=== PATIENT | female | born 1935 | race Caucasian/White ===

== ENCOUNTER 2019-01-27 20:13 | Inpatient (IN) | payer MEDICARE ==
[~2019-01-27 20:13] MED LIST: ISOVUE-370 76%-LOCM 1 ML ONE
[2019-01-27] MEDS ORDERED: Ondansetron PF 4 MG/2 ML Vial ONE (20:18)
[2019-01-27] MEDS ORDERED: Naloxone HCl 2 mg/2 ml Syringe ONE (20:18)
[2019-01-27] MEDS ORDERED: hydrALAZINE 20 MG/ML VIAL ONE ×2 (20:24→22:25)
[2019-01-27 20:39] LABS: #Eosinphils 0.1 thou/uL (0.0-0.7); #Lymphocytes 1.1 thou/uL (1.20-3.40); #Neutrophils 11.2 thou/uL (1.40-6.50); %Basophils 0.1 % (0.0-1.0); %Eosinophils 0.4 % (0.0-10.0); %Lymphocytes 8.2 % (21.0-51.0); %Monocytes 7.5 % (0.0-10.0); %Neutrophils 83.9 % (42.0-75.0); Hemoglobin 12.4 g/dL (12.0-16.0); Mean Corpuscular HGB CONC 31.9 g/dL (32.0-36.0); Mean Corpuscular Hemoglobin 29.2 pg (27.0-31.0); Mean Corpuscular Volume 91.7 fL (78.0-98.0); Mean Platelet Volume 8.3 fL (7.4-10.4); Platelet Count 167 thou/uL (130-400); RBC Distribution Width 13.7 % (11.5-14.5); Red Blood Cell (RBC) Count 4.23 mill/uL (4.20-5.40); White Blood Cell (WBC) Count 13.3 thou/uL (4.8-10.8)
--- NOTE | 2019-01-27 20:45 | CT ---
CT Brain WO Con History: [Trauma fall] Comparison: None Findings: There is a moderate right convexity subdural hematoma with along with a small subarachnoid component. There is intraventricular hemorrhage within both atria of the lateral ventricles. Some small volume right sylvian fissure subarachnoid hemorrhage. There is a an intraparenchymal hemorrhage and contusion of the inferior left cerebellum with adjacent calvarial fracture of the left occipital bone. Small left parietal intraparenchymal hemorrhage and small adjacent subdural hematoma as well as left frontal subarachnoid hemorrhage. No significant mass effect. The greatest dimension of the right subdural hematoma is approximately 5 mm. Impression: 1. Multifocal right convexity subdural hematoma and subarachnoid hemorrhage. No significant mass effe ct. Greatest transverse dimension of the right convexity subdural hematoma is 5 mm. 2. Inferior left cerebellar intraparenchymal hemorrhage and contusion. 3. Multifocal left frontal small volume subarachnoid hemorrhage as well as small left parietal subdur al hematoma and intraparenchymal hematoma. 4. Sagittally oriented fracture of the left occipital bone which appears to extend to the foramen mag num. 5. Small volume intraventricular hemorrhage of both lateral ventricles. No significant hydrocephalus.
[2019-01-27 20:55] LABS: ALT (SGPT) 24 U/L (8-55); AST (SGOT) 28 U/L (5-34); Albumin 4.2 g/dL (3.4-4.8); Alkaline Phosphatase 78 U/L (40-150); Anion Gap 17 mmol/L (10-20); BUN (Urea Nitrogen) 10 mg/dL (9.8-20.1); Bilirubin, Total 0.6 mg/dL (0.2-1.2); Calc. Creatinine Clearance 0 mL/min (70-130); Calcium 9.6 mg/dL (7.8-10.44); Carbon Dioxide 24 mmol/L (23-31); Chloride 104 mmol/L (98-107); Estimated GFR-MDRD 60; Globulin 2.9 g/dL (2.4-3.5); Glucose 274 mg/dL (83-110); Potassium 3.4 mmol/L (3.5-5.1); Protein, Total 7.1 g/dL (6.0-8.3); Sodium 142 mmol/L (136-145)
[2019-01-27 20:56] LABS: Acetaminophen Less than 6.0 mcg/mL (10.0-30.0); Alcohol Less than 10 mg/dL (Less than 10); CK (CPK) 40 U/L (29-168); Salicylate Less than 8.0 mg/dL (15.0-30.0)
--- NOTE | 2019-01-27 20:56 | CT ---
CT Cervical Spine WO Con History: [Trauma. Fall.] Comparison: None. Findings: There is a sagittally oriented fracture left occipital bone extending into the left hypoglo ssal canal. The odontoid process evaluation is limited due to motion although appears to be intact. The occipital condyles are intact. Cervical spine vertebral bodies are intact. Advanced degenerative changes of the facet joints. No abnormal facet joint widening. Visualized ribs are intact. Spinous processes are intact. Multiple hypodensities of the thyroid. The lung apices appear clear. No prevertebral hematoma. Impression: Sagittally oriented fracture of the left occipital bone extending into the hypoglossal ca nal. Cervical spine is intact.
--- NOTE | 2019-01-27 21:03 | CT ---
CT Chest Abd Pelvis W Con Limited CT thoracic spine Limited CT lumbosacral spine History: [Trauma. Fall.] Comparison: None. Findings: The sternum and manubrium are intact. Visualized portion of the clavicles are intact. Thora cic spine and lumbar spine are intact. Circumferential disc osteophyte complex at L3/L4 causes spinal canal and neural foraminal narrowing. Visualized portions of the scapula are intact. No acute displaced rib fracture. No lumbar spine trans verse process fracture. Osseous pelvis is intact. Obturator rings are intact. Femoral heads and necks are intact. No pneumothorax. No pulmonary contusion. Mild atelectatic changes. Multiple hypodensities of the thyroid first nonemergent ultrasound could be performed. No pericardial effusion. No acute hepatic injury. No splenic laceration. No retroperitoneal injury. No pancreatic injury. No dilated loops of large or small bowel. Small fat-containing periumbilical hernia. No retro peritoneal adenopathy. Splenic trunk and superior mesenteric arteries are patent with approximately 50% narrowing of the ostia of the superior mesenteric artery due to soft plaque. No free intraperitoneal gas or fluid. Impression: No acute traumatic abnormality within the chest, abdomen, nor pelvis.
[2019-01-27 21:15] LABS: CKMB 1.3 ng/mL (0-6.6)
[2019-01-27 21:18] LABS: INR-International Normal Ratio 1.1; PTT 23.3 SEC (22.9-36.1)
--- NOTE | 2019-01-27 21:27 | RAD ---
XR Tib Fib Lt Leg 2 View History: [Trauma.] Comparison: None. Findings: Mild soft tissue swelling. Tibia and fibula are intact. No significant knee joint effusion. Impression: No acute fracture.
--- NOTE | 2019-01-27 21:28 | RAD ---
XR Hand Rt 3 View STANDARD History: [Trauma. Fall.] Comparison: None. Findings: Evidence of an old injury of the thumb metacarpal diaphysis. No acute fractures appreciated . Moderate interferential joint space narrowing of all digits. Distal radius is intact. Impression: No acute fracture or malalignment.
[2019-01-27 21:54] LABS: Bilirubin Negative (Negative); Blood, Urine Small (Negative); Clarity CLEAR (Clear); Glucose, Urine (Dipstick) 500 mg/dL (Negative); Leukocyte Negative (Negative); Nitrite Negative (Negative); Protein, Urine (Dipstick) 30 mg/dL (Neg-Trace); Specific Gravity, Urine 1.024 (1.002-1.036); Urobilinogen 0.2 mg/dL (0.2-1.0)
[2019-01-27 21:58] LABS: Bacteria/HPF None Seen HPF (None Seen); Hyaline Casts/LPF 0-3 HYALINE CAST LPF (0-3 Hyaline); Pathc Cast-AUWi Flag 0.27 (0-2.49); Squamous Epithelial 0-3 HPF (0-3); WBC/HPF None Seen HPF (0-3)
[2019-01-27 22:03] LABS: Amphetamine Not Detected (NotDetected); Barbiturates Screen Not Detected (NotDetected); Benzodiazepine Screen Not Detected (NotDetected); Cocaine Metabolite Screen Not Detected (NotDetected); Medtox Control Line Valid? VALID (VALID); Medtox Reader # READER 4; Methadone Not Detected (NotDetected); Methamphetamine Not Detected (NotDetected); Opiate Screen Not Detected (NotDetected); Oxycodone Screen Not Detected (NotDetected); Phencyclidine (PCP) Not Detected (NotDetected); THC/Cannabinoid Screen Not Detected (NotDetected); Tricyclic Screen Not Detected (NotDetected)
[2019-01-27] MEDS ORDERED: Ondansetron PF 4 MG/2 ML Vial IVP PRN ×2 (23:00→23:06)
[2019-01-27] MEDS ORDERED: Acetaminophen 325 MG TAB PO PRN (23:00)
[2019-01-27] MEDS ORDERED: Ondansetron ODT 4 MG TAB SL PRN (23:00)
[2019-01-27] MEDS ORDERED: Morphine 4 MG/ML VIAL SLOW IVP PRN (23:06)
[2019-01-27] MEDS ORDERED: Promethazine HCl 25 MG/ML VIAL IM PRN (23:06)
[2019-01-27] MEDS ORDERED: Dextrose 50% Abboject 50 ML SYRINGE SLOW IVP PRN (23:06)
[2019-01-27] MEDS ORDERED: Dextrose 5% in Water 1,000 ML IV PRN (23:06)
[2019-01-27 23:12] VITALS: BMI 26.2
[2019-01-27] MEDS: hydrALAZINE 20 MG/ML VIAL SLOW IVP PRN (23:17)
[2019-01-27] MEDS: Sodium Chloride 0.9% 1,000 ML IV SCH (23:21)
[2019-01-27] MEDS ORDERED: Potassium Chloride 20 MEQ in Premix Bag 1 BAG IVPB SCH (23:30)
[2019-01-27] MEDS: Acetaminophen 1,000 MG in Premix Bag 1 BAG IVPB SCH (23:36)
--- NOTE | 2019-01-28 00:17 | HP ---
TRAUMA SURGEON: Dr. Garcia. CONSULTING PHYSICIAN: Dr. Farah. HISTORY OF PRESENT ILLNESS: The patient is an 83-year-old female, who came to the emergency department via EMS and as a level 2 trauma activation. Family reported that they had not heard from her for about an hour and a half and so they went to see if she was okay. They found her essentially confused and on the ground. She does have a history of multiple falls over the past eight months. One time, she had a concussion most recently in October. She had a cardiac workup including a catheterization, which demonstrated she had significant coronary artery disease. It was determined at that time that stenting and bypass were not an option for her. Echo completed at that time demonstrated EF was 55% to 60% with no other disease. Carotid artery ultrasound reported that stenosis was 50% to 69%. Family reported that the patient has been having multiple recent falls and usually wears a Life Alert, but has not worn it recently. She does not remember the fall. She knows that she is in the hospital and knows the year, but could not remember the name of the medical office receptionist. She did say that he was the richest man in the world, however. At the time of my evaluation, her GCS was 14 to 15. Family reported that it was much improved from the time that they found her. The patient is on Plavix started in October after her significant coronary artery disease was discovered and intervention was not possible, so she was placed on medications for hyperlipidemia as well as Plavix. She is typically a patient of [facility] and she does not have any medical records at this hospital. REVIEW OF SYSTEMS: All additional 10-point review of systems negative except as indicated above. PAST MEDICAL HISTORY: Hypertension, coronary artery disease, hyperlipidemia, unsure if the patient has CHF from family; however, echo report given to me by family says otherwise, psoriatic arthritis, depression, sepsis one year ago due to cellulitis of left lower extremity, and multiple recent syncopal falls. PAST SURGICAL HISTORY: Hysterectomy and appendectomy. SOCIAL HISTORY: The patient denies recent tobacco, drug, or alcohol abuse. She did use to smoke, but has not done so in the past 20 or so years. She lives alone and her family is involved in her care. MEDICATIONS: 1. Amlodipine. 2. Bisoprolol. 3. Lexapro. 4. Protonix. 5. Plavix. 6. Calcium with vitamin D. 7. Prednisone 5 mg daily for psoriatic arthritis. 8. Lipitor. 9. Seroquel. 10. Clobetasol cream . 11. Calcipotriene 0.005%. 12. Triamcinolone cream 0.1%. 13. Econazole 1% cream. ALLERGIES: HYDROCODONE, LISINOPRIL, AND LOSARTAN. PHYSICAL EXAMINATION: VITAL SIGNS: Heart rate 88, blood pressure 168/54, respirations 18, oxygen saturation 92% on room air. PRIMARY SURVEY: Airway intact. Adequate breath sounds bilaterally. 2+ distal pulses in the bilateral radials, femorals, and DPs. GCS is 14 to 15, -1 for confusion that waxes and wanes. GCS has greatly improved from the time of fall. Gross motor and sensation is intact. No laceration, bruising to the left side of her cheek as well as bruising to her left tib-fib. Small bruises on her right hand. No external bleeding. SECONDARY SURVEY HEAD: Normocephalic and atraumatic. No gross palpable skull deformities or tenderness. EYES: Pupils 3 to 2 equal, round, and reactive to light bilaterally. ENT: No hemotympanum. No epistaxis. No septal hematoma. Midface stable to manipulation. No blood in the oropharynx. Dentition is intact. No anterior neck injury/crepitus/tenderness. C-SPINE: No step-offs or deformities. Nontender. C-collar not in place. CHEST: Nontender. No crepitus. No abrasions or ecchymosis noted. Equal chest movement. ABDOMEN: Soft, nontender, nondistended. PELVIS: Stable to manipulation. Nontender. No abrasions or ecchymosis. RECTAL: Deferred. GENITOURINARY: Deferred. EXTREMITIES: No gross deformities. No abrasions or ecchymosis to left tib-fib, very small, 2+ pulses in the bilateral radials, femorals, and DPs. BACK/SPINE: No step-offs or deformities or tenderness to palpation of the thoracic or lumbar spine. No abrasions or ecchymosis noted. NEURO: GCS 14 to 15, -1 for confusion that waxes and wanes and a 5/5 strength in the bilateral fingernail sculpturer, plantar flexion, and dorsiflexion. Gross normal sensation x4 extremities. LABORATORY FINDINGS: White count 13.3, hemoglobin 12.4, hematocrit 38.8, platelets 167. INR 1.1. Sodium 142, potassium 3.4, chloride 104, carbon dioxide 24, BUN 10, creatinine 0.9, glucose 274. Lactic acid 3.8, troponin 0.029, and CK 40. UA negative. Toxicology of urine and blood screen negative. DIAGNOSTIC FINDINGS: CT of the C-spine demonstrates a sagittally oriented fracture of the left occipital bone extending into the hypoglossal canal. Cervical spine is intact. CT of the chest, abdomen, and pelvis demonstrates no acute traumatic abnormalities within the chest, abdomen, or pelvis. CT of the brain demonstrates multifocal right convexity subdural hematoma and subarachnoid hemorrhage. No significant mass effect. Greatest transverse dimension of the right convexity subdural hemorrhage is 5 mm, inferior left cerebral intraparenchymal hemorrhage and contusion, multifocal left frontal small volume subarachnoid hemorrhage as well as small left parietal subdural hemorrhage and intraparenchymal hematoma, sagittally oriented fracture of the left occipital bone, which appears to extend to the foramen magnum, small volume intraventricular hemorrhage of both lateral ventricles. No significant hydrocephalus. X-ray of the right hand demonstrates no acute fracture or malalignment. X-ray of the left tib-fib demonstrates no acute fracture. ASSESSMENT: 1. Status post found down ground level fall, unknown syncopal episode. 2. Multiple subarachnoid hemorrhages, subdural hemorrhages, intraparenchymal hemorrhage and contusion as well as intraventricular hemorrhage, left occipital bone fracture, closed fracture. 3. Hypokalemia. 4. History of hypertension, coronary artery disease, hyperlipidemia, concern for possible congestive heart failure, psoriatic arthritis, depression, history of sepsis, left lower extremity, due to left lower extremity cellulitis, multiple syncopal falls. PLAN: Dr. Farah with Neurosurgery has been consulted and recommends that we repeat head CT in the morning. We will maintain the head of the bed at 30 degrees. Goal systolic blood pressure less than 170. She has p.r.n. hydralazine for that. She will be n.p.o. with normal saline at 70 an hour. She received pain control with IV Ofirmev and morphine. We will hold chemo-DVT prophylaxis at this time as well as her home Plavix. We will start SCDs and we will start stress ulcer prophylaxis. We will do q.1 hour neuro checks. Physical and Occupational Therapy to see the patient tomorrow. Speech language pathology has also been consulted for cognitive evaluation. The patient does have a living will and family reports that she is a DNR. They were not able to provide paperwork at this time, but will bring it to the hospital tomorrow. Trauma team and Trauma attending tomorrow to discuss DNR status with the patient at that time. The patient was discussed with Dr. Garcia before this dictation. Job ID: [id number] [facility]
[2019-01-28 02:41] LABS: Lactic Acid 4.1 mmol/L (0.5-2.2)
[2019-01-28] MEDS ORDERED: Sodium Chloride 0.9% 500 ML IVPB SCH (03:00)
[2019-01-28] MEDS: Acetaminophen 1,000 MG in Premix Bag 1 BAG IVPB SCH (04:38)
[2019-01-28] MEDS ORDERED: Morphine 2 MG/ML SYRINGE SLOW IVP PRN (08:18)
--- NOTE | 2019-01-28 08:32 | CT ---
CT HEAD NONCONTRAST: Date: 01/28/19 INDICATION: Post-traumatic injury, follow-up. Reference made to previous day. FINDINGS: There has been interval increase in volume of diffuse subarachnoid hemorrhage, which is present bilat erally, more pronounced on the right. Subdural hematoma overlying the right convexity is redemonstrat ed, grossly stable. There remains intraventricular hemorrhagic extension. No significant shift of mid line. Parenchymal hematoma of left cerebellar hemisphere is more pronounced, with surrounding vasogen ic edema. There is progressive subdural hematoma along the cerebellar tentorium, greater to the right of midline. Slight progression in volume of hemorrhage overlying the anterior pole right temporal lo be and a mild component also seen overlying the anterior pole left temporal lobe. Comminuted left occ ipital bone fracture is again seen. IMPRESSION: 1. Diffuse intracranial, extra-axial hemorrhage, which is progressive in volume. No significant shif t of midline. 2. Parenchymal hematoma of left cerebellar hemisphere is also increased. 3. No significant increase in thickness of subdural hematoma overlying the right convexity. There vora s been interval increased subdural hematoma along the cerebellar tentorium. 4. Intraventricular hemorrhagic extension remains, and is slightly progressed. Recommend continued i maging follow-up. POS: PRUDENCIO
[2019-01-28] MEDS ORDERED: Prevnar 13-Val Conj/PF 0.5 ML SYRINGE IM ONE (09:00)
[2019-01-28] MEDS ORDERED: Famotidine/PF 20 mg/2ml Vial SLOW IVP SCH (09:00)
[2019-01-28] MEDS: Escitalopram Oxalate 10 mg Tablet PO SCH (09:57)
[2019-01-28] MEDS: Atorvastatin Calcium 40 MG TAB PO SCH ×3 (09:58→20:26)
[2019-01-28] MEDS: Amlodipine 5 MG TAB PO SCH ×2 (09:58→20:27)
[2019-01-28] MEDS: predniSONE 5 MG TAB PO SCH (09:58)
[2019-01-28 10:09] LABS: #Lymphocytes 0.8 thou/uL (1.20-3.40); #Monocytes 0.9 thou/uL (0.11-0.59); #Neutrophils 6.7 thou/uL (1.40-6.50); %Basophils 0.3 % (0.0-1.0); %Eosinophils 0.3 % (0.0-10.0); %Lymphocytes 9.5 % (21.0-51.0); %Monocytes 10.5 % (0.0-10.0); %Neutrophils 79.5 % (42.0-75.0); Hemoglobin 10.3 g/dL (12.0-16.0); Mean Corpuscular HGB CONC 31.9 g/dL (32.0-36.0); Mean Corpuscular Hemoglobin 29.1 pg (27.0-31.0); Mean Corpuscular Volume 91.2 fL (78.0-98.0); Mean Platelet Volume 8.1 fL (7.4-10.4); Platelet Count 169 thou/uL (130-400); RBC Distribution Width 13.8 % (11.5-14.5); Red Blood Cell (RBC) Count 3.52 mill/uL (4.20-5.40); White Blood Cell (WBC) Count 8.5 thou/uL (4.8-10.8)
--- NOTE | 2019-01-28 10:23 | CON ---
DATE OF CONSULTATION: Ms. Hernandez is a very pleasant 83-year-old woman, who presented to the emergency department via EMS transfer after being found down by her family for undetermined amount of time. Last known normal was around 5:00 this afternoon, but then the patient was responding to text messages by phone call, so they went to check and found her on the floor confused at home. Did perform CT of the head, which revealed right-sided frontotemporal convexity, acute subdural hematoma with minimal mass effect and 1 mm of midline shift if any. There is also scattered subarachnoid hemorrhage throughout the frontal and parietal lobes near the vertex. She is on Plavix for cardiac condition. According to family, she has a history of several falls, but for the last month and a half, has actually done well without this and then this happened today and having no indication at this time that she had heart attack or stroke, but do not have a reason for her fall as it was unwitnessed. The patient is very hard of hearing and having to nearly yell during course of her interaction. At bedside, the patient is awake and alert. She is unable to tell how oriented she is because of the hearing impairment in regard to how many times I asked her, she does not answer this question other than nodding or shaking her head. She is able to tell me that she is cold. She is able to tell me her name. She is able to follow commands, squeezing hands and moving her feet. She has good 5/5 strength in bilateral upper and bilateral lower extremities. Hematoma to the scalp of the occipital skull on CT scan. Of note, other than her hematoma, she does have a left-sided occipital bone fracture that is minimally displaced. On examination, she has no midline tenderness or paraspinous muscular tenderness . Pupils are equal, round, reactive to light. Extraocular movements are intact. Speech is uninhibited, but she does only respond minimally secondary to her hearing deficit. Other than Plavix, the patient is not on any other blood thinners. Trauma will be admitting this patient to discuss that with Trauma PA. Neurosurgery's perspective will likely be one of nonintervention with only watching. Her blood pressure was 201 systolic when coming in, but right now in the room is 170. Our parameter would be systolic under 170. Repeat head CT in the morning unless clinical deterioration occurs at which point, she will need a stat CT. We will keep head of bed elevated at 30 degrees. Neuro checks q.2 hours and will hold all blood thinning medications. I discussed with family and patient that likely again this represents a noninterventional case with need for repeat imaging in the morning and close monitoring overnight given her antiplatelet status. We will also give a unit of apheresis platelets for the purpose of bolstering her uninhibited platelet supply. Neurosurgery will continue to follow. Job ID: [id number]
[2019-01-28 10:36] LABS: Lactic Acid 1.9 mmol/L (0.5-2.2)
[2019-01-28 10:39] LABS: Anion Gap 13 mmol/L (10-20); BUN (Urea Nitrogen) 9 mg/dL (9.8-20.1); Calc. Creatinine Clearance 62 mL/min (70-130); Carbon Dioxide 27 mmol/L (23-31); Chloride 103 mmol/L (98-107); Estimated GFR-MDRD 72; Glucose 151 mg/dL (83-110); Magnesium 1.9 mg/dL (1.6-2.6); Phosphorus 3.7 mg/dL (2.3-4.7); Potassium 3.7 mmol/L (3.5-5.1); Sodium 139 mmol/L (136-145)
[2019-01-28] MEDS: Acetaminophen 500 MG TAB PO SCH ×3 (12:36→23:11)
[2019-01-28] MEDS ORDERED: Scopolamine 1.5 mg/72 hour Patch TD SCH (13:00)
--- NOTE | 2019-01-28 13:26 | PRG ---
DATE OF SERVICE: 01/28/2019 Ms. Hernandez this morning appears well. Her hearing appears to have improved a great deal. A repeat CT this morning shows some evolution in the left cerebral hemisphere of some patchy subarachnoid hemorrhage. The density of the right subdural hematoma seems to have decreased some and improved slightly. From a neurologic standpoint she is more interactive and as previously stated, her hearing seems to have improved for whatever reason. Her confusion is less. We can relax. Neuro checks to q. 4 or even potentially q.6 hours and can transfer to the floor. Neurosurgery will sign off at this time unless there is further neurologic change. We will plan to see her in 4 weeks with repeat imaging. Job ID: [id number]
--- NOTE | 2019-01-28 14:24 | PRG ---
DATE OF SERVICE: 01/28/2019 SUBJECTIVE: Ms. Hernandez is an 83-year-old woman, who was found down following apparent ground level fall. The patient sustained multiple traumatic injuries including comminuted left occipital bone fracture as well as traumatic subarachnoid hemorrhages. The patient is placed in intensive care unit overnight. This morning, she is awake and alert, though confused. Her Britni Coma Scale is noted at E4, M6, V4. She moves all extremities. She tolerated breakfast well. She denies any pain, headaches or photophobia. OBJECTIVE: VITAL SIGNS: This morning include blood pressure of 161/72, pulse is 86, respiratory rate is 26, temperature is 99.7 degrees Fahrenheit, and oxygen saturation is 97% on room air. HEENT: Pupils are equal, round, reactive to light and accommodation. HEART: Regular rate and rhythm. No murmurs or gallops auscultated. LUNGS: Clear to auscultation bilaterally. Breathing, regular and nonlabored. ABDOMEN: Soft, nontender, and nondistended. EXTREMITIES: 2+ radial and pedal pulses bilaterally. No ankle edema is present. DIAGNOSTIC DATA: Repeat CT scan of the brain this morning reveals scattered subarachnoid hemorrhages with no mass effects. LABORATORY FINDINGS: Today include a CBC with 8500 white blood cells, hemoglobin and hematocrit of 10.3 and 32.1 respectively. Platelet count is 169,000. Metabolic profile; sodium 139, potassium 3.7, chloride 103, bicarb 27, BUN 9, creatinine 0.77, glucose 151, magnesium 1.9, and phosphorus 3.7. IMPRESSIONS: 1. Post injury day #1, status post ground level fall. 2. Acute traumatic subarachnoid hemorrhages, neurologically stable. 3. Acute hypomagnesemia. 4. Acute hypokalemia. PLAN: 1. Correct abnormal electrolytes. 2. Increase activity per Physical and Occupational Therapy. 3. We will ask speech and language pathologist to evaluate the patient for cognitive rehabilitation. 4. We will ask PM and R to evaluate the patient for possible inpatient rehabilitation post discharge. 5. Above findings and plan discussed with the patient and 2 adult daughters at bedside. 6. They indicated understanding of information given. I have answered their questions. Job ID: [id number]
[2019-01-28] MEDS: Sodium Chloride 0.9% 1,000 ML IV SCH (15:04)
[2019-01-28] MEDS: traMADol HCl 50 MG TAB PO PRN (17:04)
[2019-01-28] MEDS: hydrALAZINE 20 MG/ML VIAL SLOW IVP PRN (20:35)
[2019-01-29] MEDS: Acetaminophen 500 MG TAB PO SCH ×2 (06:03→13:10)
[2019-01-29] MEDS: Sodium Chloride 0.9% 1,000 ML IV SCH ×2 (06:03→18:15)
--- NOTE | 2019-01-29 07:39 | PRG ---
DATE OF SERVICE: 01/29/2019 Ms. Hernandez is an 83-year-old female who presented with a traumatic subarachnoid hemorrhage, contusions and small right-sided subdural hematoma. I reviewed the notes as dictated by Jere Dorantes and I have reviewed her imaging as well. I agree with his overall plan of care and there will be no plans for neurosurgical intervention. We can follow up with her on an outpatient basis moving forward. Job ID: [id number] [facility]
[2019-01-29] MEDS: Amlodipine 5 MG TAB PO SCH ×2 (08:12→21:10)
[2019-01-29] MEDS: Escitalopram Oxalate 10 mg Tablet PO SCH (08:13)
[2019-01-29] MEDS: predniSONE 5 MG TAB PO SCH (08:13)
--- NOTE | 2019-01-29 11:07 | CT ---
CT Brain WO Con HISTORY: Altered mental status. Increased confusion. Patient cannot walk or stand today. Status post fall. COMPARISON: Prior day's exam. FINDINGS: There is generalized ventricular and sulcal prominence. There is no midline shift noted. Alcaraz barachnoid blood is again demonstrated. The left cerebellar hemorrhage is felt to be essentially stable. The subdural blood along the tentorium is stable. The extra-axial blood along the right tempo ral lobe is also felt to be essentially unchanged. The subdural blood along the right frontal convexity may be minimally improved. The intraventricular blood also appears to be stable. Some of the interparenchymal blood seen in the right frontal region some of which is parasylvian in l ocation is somewhat decreased some of this may be a decrease in the subarachnoid blood within the sylvian fissure sulci. No new areas of hemorrhage. IMPRESSION: Diffuse blood all relatively stable as compared to the prior examination, this includes s ubarachnoid, subdural and intra-axial hemorrhage. Some of the changes on the right frontal lobe are less prominent this may represent resolving subarachnoid blood within the sulci of the sylvian fissur e.
[2019-01-29] MEDS ORDERED: Acetaminophen 1,000 MG in Premix Bag 1 BAG IVPB SCH (12:15)
[2019-01-29] MEDS: traMADol HCl 50 MG TAB PO PRN (15:35)
[2019-01-29] MEDS: Acetaminophen 1,000 MG in Premix Bag 1 BAG IVPB SCH (18:10)
--- NOTE | 2019-01-29 19:58 | PRG ---
DATE OF SERVICE: 01/29/2019 SUBJECTIVE: The patient is currently on the surgical floor. She had no issues overnight. She is status post ground-level fall, which she sustained a subarachnoid hemorrhage. Yesterday, the patient verbally was very confused, essentially speaking almost a word salad. This morning, the patient was noted to be nonverbal. She was still moving all 4 extremities, but definitely appeared to be aphasic. At which time, a repeat head CT was ordered. This did not show any acute changes or increases. This is most likely sequela of her postconcussive syndrome on top of her acute traumatic subarachnoid hemorrhage. This was discussed with the family by Dr. Gatica, at the time of round and after the repeat head CT was completed. OBJECTIVE: VITAL SIGNS: Temperature is 98.2, heart rate 100, blood pressure 164/65, respirations 16, oxygen saturation 92% on room air. GENERAL: The patient is in bed. She is awake. Her eyes are opened. She again is moving all 4 extremities, but is not following commands and is nonverbal. HEENT: Unremarkable. LUNGS: Clear to auscultation bilaterally. The patient is moving air effortlessly. HEART: Regular rate and rhythm. ABDOMEN: Soft, nontender, nondistended. EXTREMITIES: Capillary refill less than 3 seconds. The patient is moving all 4 extremities. There are no labs to review this morning. RADIOGRAPHS: CT of the brain without contrast shows diffuse blood all relatively stable as compared to the prior examination. This includes subarachnoid subdural and intra-axial hemorrhage. ASSESSMENT AND PLAN: 1. Status post ground-level fall. 2. Status post acute traumatic subarachnoid hemorrhages. PLAN: Plan will be to continue physical, occupational, and speech therapy, and discuss placement with family. The patient is most likely going to need a skilled facility. Examination and evaluation were done with Dr. Gatica, this morning during rounds and after her repeat head CT. Job ID: [id number]
[2019-01-29] MEDS: Atorvastatin Calcium 40 MG TAB PO SCH (21:09)
[2019-01-30] MEDS: Acetaminophen 1,000 MG in Premix Bag 1 BAG IVPB SCH ×2 (00:08→05:34)
[2019-01-30] MEDS: hydrALAZINE 20 MG/ML VIAL SLOW IVP PRN ×2 (00:16→12:48)
[2019-01-30] MEDS: Amlodipine 5 MG TAB PO SCH (09:03)
[2019-01-30] MEDS: predniSONE 5 MG TAB PO SCH (09:04)
[2019-01-30] MEDS: Escitalopram Oxalate 10 mg Tablet PO SCH (09:04)
[2019-01-30] MEDS: Sodium Chloride 0.9% 1,000 ML IV SCH (09:06)
[2019-01-30] MEDS: traMADol HCl 50 MG TAB PO PRN (12:47)
[2019-01-30 15:46] VITALS: TEMP 97.6
[2019-01-30] MEDS ORDERED: hydrALAZINE 20 MG/ML VIAL SLOW IVP PRN (16:50)
[2019-01-30 18:15] VITALS: BP 162/62
--- NOTE | 2019-02-01 14:23 | EKG ---
Test Reason : Blood Pressure : / mmHG Vent. Rate : 090 BPM Atrial Rate : 090 BPM P-R Int : 168 ms QRS Dur : 090 ms QT Int : 418 ms P-R-T Axes : 052 -05 066 degrees QTc Int : 511 ms Normal sinus rhythm Nonspecific ST abnormality Prolonged QT Abnormal ECG Confirmed by JAVIER JOHNSON ([id number]), technical writer and editor NICKI CHAUDHRY ([id number] on 02/01/2019 2:22:58 PM Referred By: Confirmed By:JAVIER JOHNSON
== END 2019-01-30 19:15 | DRG 84 ==
LOC: ERS 20:13 → CCU 22:42 → SURG B 01-28 19:01
PROVIDERS: ADMIT Surgery; ATTEND Surgery
DX: S06.6X9A Traumatic subarachnoid hemorrhage with loss of consciousness of unspecified duration, initial encounter (principal); Z66 Do not resuscitate; E87.6 Hypokalemia; E83.42 Hypomagnesemia; S02.119A Unspecified fracture of occiput, initial encounter for closed fracture; E78.5 Hyperlipidemia, unspecified; I10 Essential (primary) hypertension; F07.81 Postconcussional syndrome; M19.90 Unspecified osteoarthritis, unspecified site; I25.10 Atherosclerotic heart disease of native coronary artery without angina pectoris; F32.9 Major depressive disorder, single episode, unspecified; Y92.9 Unspecified place or not applicable; W18.30XA Fall on same level, unspecified, initial encounter; Z90.49 Acquired absence of other specified parts of digestive tract; Z90.710 Acquired absence of both cervix and uterus; Z87.891 Personal history of nicotine dependence; Z91.81 History of falling; Z88.8 Allergy status to other drugs, medicaments and biological substances; Z79.899 Other long term (current) drug therapy
CPT/HCPCS: 36415; 36416; 36430; 70450; 71260; 72125; 74177; 80048; 80053; 80306; 80307; 81003; 81015; 82550; 82553; 83605; 83735; 83880; 84100; 84443; 84484; 85025; 85610; 85730; 86850; 86900; 86901; 87040; 87086; 93005; G0390; J0131; J0360; J2310; J2405; J3480; J7512; P9035; Q9966; S0028

== ENCOUNTER 2019-02-05 13:27 | Inpatient (IN) | payer MEDICARE ==
--- NOTE | 2019-02-05 14:17 | RAD ---
EXAM: Single view of the chest HISTORY: Altered mental status COMPARISON: None FINDINGS: Single view of the chest shows a normal sized cardiomediastinal silhouette. Atheroscleroti c calcifications are seen in the aorta. There is no evidence of consolidation, mass, or pleural effusion. The bones are unremarkable. IMPRESSION: No evidence of acute cardiopulmonary disease
[2019-02-05 14:38] LABS: #Lymphocytes 0.9 thou/uL (1.20-3.40); #Monocytes 0.8 thou/uL (0.11-0.59); #Neutrophils 8.9 thou/uL (1.40-6.50); %Basophils 0.1 % (0.0-1.0); %Eosinophils 0.3 % (0.0-10.0); %Lymphocytes 8.3 % (21.0-51.0); %Monocytes 7.5 % (0.0-10.0); %Neutrophils 83.8 % (42.0-75.0); Hemoglobin 13.3 g/dL (12.0-16.0); Mean Corpuscular HGB CONC 33.5 g/dL (32.0-36.0); Mean Corpuscular Hemoglobin 29.5 pg (27.0-31.0); Mean Corpuscular Volume 88.2 fL (78.0-98.0); Mean Platelet Volume 7.2 fL (7.4-10.4); Platelet Count 315 thou/uL (130-400); RBC Distribution Width 14.4 % (11.5-14.5); Red Blood Cell (RBC) Count 4.52 mill/uL (4.20-5.40); White Blood Cell (WBC) Count 10.6 thou/uL (4.8-10.8)
[2019-02-05 14:44] LABS: INR-International Normal Ratio 1.1
[2019-02-05 15:05] LABS: ALT (SGPT) 19 U/L (8-55); AST (SGOT) 20 U/L (5-34); Albumin 3.6 g/dL (3.4-4.8); Alkaline Phosphatase 84 U/L (40-150); Anion Gap 15 mmol/L (10-20); BUN (Urea Nitrogen) 23 mg/dL (9.8-20.1); Bilirubin, Total 0.8 mg/dL (0.2-1.2); Calc. Creatinine Clearance 0 mL/min (70-130); Carbon Dioxide 26 mmol/L (23-31); Chloride 100 mmol/L (98-107); Estimated GFR-MDRD 52; Globulin 3.3 g/dL (2.4-3.5); Glucose 211 mg/dL (83-110); Potassium 4.2 mmol/L (3.5-5.1); Protein, Total 6.9 g/dL (6.0-8.3); Sodium 137 mmol/L (136-145)
[2019-02-05 16:06] LABS: Lactic Acid 1.3 mmol/L (0.5-2.2)
[2019-02-05] MEDS ORDERED: hydrALAZINE 20 MG/ML VIAL SLOW IVP PRN (18:08)
[2019-02-05] MEDS ORDERED: Ondansetron PF 4 MG/2 ML Vial IVP PRN (18:08)
[2019-02-05] MEDS ORDERED: Bisacodyl 10 MG SUPP PR PRN (18:08)
[2019-02-05] MEDS ORDERED: Dextrose 5% in Water 1,000 ML IV PRN (18:08)
[2019-02-05] MEDS ORDERED: Dextrose 50% Abboject 50 ML SYRINGE SLOW IVP PRN (18:08)
[2019-02-05] MEDS: Acetaminophen 1,000 MG in Premix Bag 1 BAG IVPB SCH ×2 (18:44→23:43)
[2019-02-05] MEDS: Sodium Chloride 0.9% 1,000 ML IV SCH (18:47)
[2019-02-05] MEDS ORDERED: Triamcinolone 0.1% Cream 15 GM TUBE TOP PRN (19:15)
[2019-02-05] MEDS: Ciprofloxacin Lactate/D5W 200 MG in Premix Bag 1 BAG IVPB SCH (20:09)
[2019-02-05] MEDS ORDERED: Famotidine/PF 20 mg/2ml Vial SLOW IVP SCH (21:00)
--- NOTE | 2019-02-06 00:28 | HP ---
TRAUMA SURGEON: Dr. Gatica. CONSULTING PHYSICIAN: Dr. Matthew of Neurosurgery. HISTORY OF PRESENT ILLNESS: The patient is an 83-year-old female, who was known to the emergency department for an unwitnessed fall, found down on 01/27. At that time, she was admitted to the Trauma Service for TBI and subsequently discharged on 01/30 to [facility] for rehabilitation. Family at bedside noted that the patient had continued to decompensate starting Sunday. Workup was completed and originally, a UTI was diagnosed and treated with Keflex. The patient's mentation continued to decline throughout the days and she was subsequently sent back to the emergency department today for further evaluation. CT imaging demonstrated increase in intraventricular hemorrhage with increase in ventricular size and hydrocephalus. She also had increased edema and hemorrhage in the left cerebral hemisphere. Trauma Service and Neurosurgery were consulted for evaluation of the patient. On my evaluation, the patient appeared uncomfortable, but was not able to verbalize as to what was making her uncomfortable. She did smile and occasionally participate in my exam, but there was a significant decline in her GCS since the time of discharge. REVIEW OF SYSTEMS: Unable to complete as the patient cannot answer questions appropriately. PAST MEDICAL HISTORY: Hypertension, coronary artery disease, hyperlipidemia, psoriatic arthritis, depression, sepsis one year ago due to cellulitis of the left lower extremity, and multiple recent syncopal falls. PAST SURGICAL HISTORY: Hysterectomy and appendectomy. SOCIAL HISTORY: The patient has no history of tobacco, drug, or alcohol use. She used to smoke cigarettes but does not have a history of recent use for over 20 years. She was living alone, and her family is very involved in her care. MEDICATIONS: 1. Amlodipine. 2. Bisoprolol. 3. Lexapro. 4. Protonix. 5. Vitamin D. 6. Prednisone. 7. Lipitor. 8. Seroquel. 9. Clobetasol cream. 10. Calcipotriene cream. 11. Triamcinolone cream. 12. Econazole cream. ALLERGIES: HYDROCODONE, LISINOPRIL, AND LOSARTAN. PHYSICAL EXAMINATION: VITAL SIGNS: Temperature 97.6, pulse 72, respirations 21, oxygen saturation 99% on room air, and blood pressure 151/77. GENERAL: Elderly female, lying in bed, uncooperative with exam with some mild distress. CARDIAC: Regular rate and rhythm. No murmurs, gallops, or rubs. PULMONARY: Equal chest rise and fall. Clear breath sounds bilaterally. No signs of acute respiratory distress. No ecchymosis or abrasions noted. GASTROINTESTINAL: Abdomen is soft, nontender, nondistended. PELVIS: Stable to palpation. EXTREMITIES: 2+ pulses in all extremities. No gross deformities. No abrasions or ecchymosis noted. NEURO: GCS is eyes 4, verbal 2, and motor 5 for a total of 11. LABORATORY FINDINGS: White count 10.6, hemoglobin 13.3, hematocrit 39.8, and platelets . INR 1.0. Sodium 137, potassium 4.2, chloride 100, carbon dioxide 26, BUN 23, creatinine 1.01, glucose 211, lactic acid 1.3, total bilirubin 0.8, AST 20, and ALT 19. DIAGNOSTIC FINDINGS: CT of the brain completed today demonstrates increased intraventricular hemorrhage. There is interval increase in size of ventricular system suggesting component of hydrocephalus, nonobstructed. Increased edema and hemorrhage in the left cerebral hemisphere. Chest x-ray completed today demonstrates no evidence of acute cardiopulmonary disease. ASSESSMENT: 1. Status post patient found down last week. 2. Increase in intraventricular hemorrhage with hydrocephalus and edema. 3. Urinary tract infection, complicated Escherichia coli. PLAN: The patient will be admitted to the ICU with q.1 hour neuro checks. We will elevate the head of the bed at 30 degrees and control systolic blood pressures less than 170. Dr. Matthew with Neurosurgery has been consulted for re-evaluation of the patient. The patient was originally evaluated by Dr. Farah on her original admission. We will complete a repeat CT of the brain tomorrow morning unless clinical presentation and GCS declines. She can be up and out of bed with assistance and physical therapy. We will discontinue Keflex and start Cipro IV for UTI. It is concerning to her family that the patient reported back pain several times this week. The previous CT of the chest, abdomen, and pelvis did not demonstrate any thoracolumbar spinal injuries. If after mobilizing with physical therapy tomorrow she continues to have back pain, we will complete plain films of the thoracic and lumbar spine. The patient was seen and examined by Dr. Gatica and myself this afternoon in the emergency department. Job ID: [id number]
--- NOTE | 2019-02-06 00:55 | CON ---
DATE OF CONSULTATION: This is Marcos Sanz PA-C dictating a report for Antione Matthew MD. 50 minutes initial patient evaluation of which greater than 50% of the exam was spent in counseling and coordinating the patient's care. Remainder of the exam was spent in review of patient's medical records and formulation of treatment plan. CHIEF COMPLAINT: Altered mental status with bilateral subdural hematoma and slight intraventricular hemorrhage with mild obstructive hydrocephalus. HISTORY OF PRESENT ILLNESS: Ms. Hernandez is an 83-year-old female who was seen by our colleagues, Dr. Farah and Jere Dorantes, having sustained a fall on 01/27/2019, with subarachnoid hemorrhage. The patient was on Plavix for atrial fibrillation, but this was stopped after her fall. She was later discharged to [facility], but since Sunday, the family as well as [facility] providers noted neurologic decline in the patient becoming less responsive and unable to work with therapies earlier today. They also noted she was unable to swallow water. Head CT was done that shows a collection of bilateral subdural hematoma, but almost complete resolution of her subarachnoid hemorrhage. She does have some mild ventriculomegaly, it was not present on her most recent head CT. There is a slight amount of intraventricular hemorrhage into the posterior right lateral posterior horn of the ventricle. There does not appear to be significant midline shift or compression in regard to the bilateral subdural hematomas. The majority of the history is obtained from the patient's daughter through her bedside and have been caring for her. PHYSICAL EXAMINATION: The patient is awake and alert. She does appear to be having some difficulty with managing her secretions, however, has good oxygen saturation and appears to be protecting her airway well. GCS currently is E4 V3 M6, which makes her GCS 13. She prefers to remain nonverbal, though will attempt to mouth her name and correctly identify a pen. She is able to follow commands, though she is delayed. She is able to wiggle the fingers bilaterally and the toes bilaterally. It appears that she has more movement in the left arm and leg. However, she is lying on the right side, so this may limit her mobility on the right side. Her pupils are equal, round, and reactive, though sluggishly reactive. She does not appear to be in any distress. She has some bruising in the left chin. She does not appear to have any tenderness to palpation of the cervical spine. IMPRESSION AND DIAGNOSES: Status post fall roughly 10 days ago on Plavix with traumatic subarachnoid hemorrhage, now with bilateral subdural hematoma and slight ventriculomegaly. PLAN: At this time, the patient appears to be slightly improved in regard to her neurologic status. Therefore, the need for any type of neurosurgical intervention in regard to the subdural hematoma is not warranted. I did also discuss the possibility of any EVD placement with the patient's daughters and at this time given again that the patient's neurologic status has improved since she was admitted to the emergency room earlier this afternoon, we will hold on this. Certainly should the patient's neurologic status decline, we will plan for repeat head CT and likely placement of EVD. However, we will hold at this time. I did discuss the risks and benefits of the EVD with the patient's family and at this time, they wish to proceed. Nonetheless, we will continue to follow her serial neurologic exam with every 1 hour neuro checks. I should note that her sodium is within normal limits at 137 and she has a white blood cell count of 10.6. She did have urinary infection earlier and unfortunately was treated with Keflex rather than Cipro, so this has been updated by our Trauma colleagues. They have graciously admitted the patient. We will continue again to follow the patient. I would like her to be n.p.o. with systolic blood pressure less than 150 and plan for repeat head CT at 0600 hours in the morning tomorrow, sooner should symptoms dictate. The patient's family is very appreciative of the care that they have been given here. Please call with any changes in the patient's neurologic status. Job ID: [id number]
[2019-02-06 01:46] VITALS: BMI 26.4
[2019-02-06 05:02] LABS: #Eosinphils 0.1 thou/uL (0.0-0.7); #Lymphocytes 0.8 thou/uL (1.20-3.40); #Monocytes 0.7 thou/uL (0.11-0.59); #Neutrophils 6.9 thou/uL (1.40-6.50); %Basophils 0.4 % (0.0-1.0); %Eosinophils 0.6 % (0.0-10.0); %Lymphocytes 9.3 % (21.0-51.0); %Monocytes 8.2 % (0.0-10.0); %Neutrophils 81.5 % (42.0-75.0); Hemoglobin 12.8 g/dL (12.0-16.0); Mean Corpuscular HGB CONC 32.6 g/dL (32.0-36.0); Mean Corpuscular Hemoglobin 29.1 pg (27.0-31.0); Mean Corpuscular Volume 89.3 fL (78.0-98.0); Platelet Count 264 thou/uL (130-400); RBC Distribution Width 14.3 % (11.5-14.5); Red Blood Cell (RBC) Count 4.38 mill/uL (4.20-5.40); White Blood Cell (WBC) Count 8.4 thou/uL (4.8-10.8)
[2019-02-06 05:26] LABS: Anion Gap 16 mmol/L (10-20); BUN (Urea Nitrogen) 21 mg/dL (9.8-20.1); Calc. Creatinine Clearance 55 mL/min (70-130); Calcium 9.3 mg/dL (7.8-10.44); Carbon Dioxide 22 mmol/L (23-31); Chloride 104 mmol/L (98-107); Estimated GFR-MDRD 64; Glucose 156 mg/dL (83-110); Phosphorus 3.7 mg/dL (2.3-4.7); Potassium 3.6 mmol/L (3.5-5.1); Sodium 138 mmol/L (136-145)
[2019-02-06] MEDS: Acetaminophen 1,000 MG in Premix Bag 1 BAG IVPB SCH ×3 (05:57→17:01)
[2019-02-06] MEDS: Sodium Chloride 0.9% 1,000 ML IV SCH ×3 (05:57→21:28)
--- NOTE | 2019-02-06 07:09 | CT ---
CT HEAD NONCONTRAST: Date: 02/06/19 COMPARISON: Previous day. INDICATION: Intracranial hemorrhage, follow-up, traumatic brain injury. FINDINGS: Redemonstration of ventriculomegaly, related to intraventricular hemorrhage, which is present bilater ally. There is redemonstration of scattered subarachnoid hemorrhage, bilaterally. Bilateral prominenc e of the extra-axial spaces is similar, with bilateral increased density, predominantly posteriorly, indicative of bilateral subdural hematomas, grossly stable in volume. Scattered areas of parenchymal hyperdensity are also present, most notably at the left posterior cranial fossa. There is extra-axial density abutting the posteromedial aspect of the right cerebellar hemisphere, grossly stable in volu me. Localized subdural hematoma overlying the anterior pole right temporal lobe measures approximatel y 11.0 mm, grossly stable. No significant shift of midline. Fracture lucency at the left occipital ange ne is again noted. IMPRESSION: Redemonstration of multifocal intracranial hemorrhage, with associated intraventricular hemorrhagic e xtension and ventriculomegaly, grossly stable to previous day's exam. POS: PRUDENCIO
[2019-02-06] MEDS: Ciprofloxacin Lactate/D5W 200 MG in Premix Bag 1 BAG IVPB SCH (07:59)
[2019-02-06] MEDS ORDERED: Potassium Phosphate 15 MMOL in Sodium Chloride 0.9% 250 ML 250 ML IVPB SCH (08:00)
--- NOTE | 2019-02-06 10:24 | PRG ---
DATE OF SERVICE: 02/06/2019 This is a 30-minute initial hospital visit note, in which 30 minutes were spent reviewing the imaging record, evaluation, examination of the patient, formulation of plan. Greater than 50% time was spent in counseling on Mei Hernandez. SUBJECTIVE: Ms. Hernandez was readmitted to the hospital for neurologic decline. Head CT compared to last week demonstrates essentially persistence of intracranial blood products with bilateral subacute on chronic subdural hematomas and subarachnoid hemorrhage with intraventricular hemorrhage. There is mild enlargement of the ventricular system consistent with mild communicating hydrocephalus. The patient; however, neurologically looks better this morning when my team and I examined. She is drowsy, but opens her eyes. Remains open and alert. She is delayed with psychomotor slowing, but does follow commands in a nonfocal fashion, again delayed. IMPRESSION AND PLAN: I would recommend continued conservative management for this patient. Obviously, should there be neurologic decline, we can always consider external ventricular drain placement; however, I would argue against that at this point given the patient's neurological status and the fact that any type of CSF diversion will likely result in increase in the subdural hematoma collections, which could be quite concerning should they enlarge. At this point, however, I just recommend followup head CT in approximately 2 to 4 weeks, we will arrange that in my clinic. She has been treated for urinary tract infection. DIAGNOSES: 1. Intracranial bleed with mild communicating hydrocephalus. 2. Urinary tract infection. Job ID: [id number]
--- NOTE | 2019-02-06 12:36 | PRG ---
DATE OF SERVICE: 02/06/2019 SUBJECTIVE: Ms. Hernandez is an 83-year-old woman with recent traumatic subdural hematoma. The patient was brought to the emergency department yesterday with depressed mental status. Workup included a repeat CT scan of the brain, which revealed residual persistent intracranial hemorrhage with no significant mass effects. Also noted, however, was a mild hydrocephalus. Additional workup revealed a urinary tract infection, for which the patient has been placed on intravenous antibiotics. This morning, she is more awake and alert. Her [place] Coma Scale is E4, V4, M6. OBJECTIVE: VITAL SIGNS: Blood pressure 161/77, pulse 66, respiratory rate is 19, temperature is 97.8 degrees Fahrenheit, and oxygen saturation is 100% on room air. HEENT: Pupils are equal, round, and reactive to light and accommodation. HEART: Reveals regular rate and rhythm. No murmurs or gallops auscultated. LUNGS: Clear to auscultation bilaterally. Her breathing is regular and nonlabored. ABDOMEN: Soft, nontender, and nondistended. EXTREMITIES: Reveal 2+ radial and pedal pulses bilaterally. No ankle edema is present. NEUROLOGIC: Reveals no focal deficits present. LABORATORY FINDINGS: Includes a CBC with 8400 white blood cells, hemoglobin and hematocrit 12.8 and 39.2 respectively. Platelet count is 264,000. Metabolic profile; sodium 138, potassium 3.6, chloride is 104, bicarb is 22, BUN 21, creatinine is 0.85, glucose is 156, magnesium 2.0, and phosphorus 3.7. Recent urinalysis was consistent with E coli to additional gram-negative bacteria. The patient is currently on ciprofloxacin. IMPRESSION: 1. Acute urinary tract infection; currently, on antibiotic therapy. 2. Subacute traumatic brain injury with residual intracranial hemorrhages. No significant mass effects, neurologically improving. PLAN: 1. Continue with current antibiotic therapy. 2. Re-initiate physical and occupational therapy. 3. Anticipate discharge the patient back to inpatient rehabilitation within the next 24 to 48 hours. Above findings and plan were discussed with the patient and family at bedside. Job ID: [id number]
[2019-02-06] MEDS ORDERED: ECONAZOLE NITRATE TOP PRN (17:21)
[2019-02-06] MEDS: Atorvastatin Calcium 40 MG TAB PO SCH (21:28)
[2019-02-06] MEDS: Famotidine/PF 20 mg/2ml Vial SLOW IVP SCH (21:28)
[2019-02-06] MEDS: hydrALAZINE 20 MG/ML VIAL SLOW IVP PRN (21:31)
[2019-02-07 04:57] LABS: #Eosinphils 0.1 thou/uL (0.0-0.7); #Lymphocytes 0.9 thou/uL (1.20-3.40); #Monocytes 0.6 thou/uL (0.11-0.59); %Eosinophils 0.7 % (0.0-10.0); %Lymphocytes 10.2 % (21.0-51.0); %Monocytes 7.2 % (0.0-10.0); %Neutrophils 81.8 % (42.0-75.0); Hemoglobin 13.3 g/dL (12.0-16.0); Mean Corpuscular HGB CONC 32.7 g/dL (32.0-36.0); Mean Corpuscular Hemoglobin 28.9 pg (27.0-31.0); Mean Corpuscular Volume 88.5 fL (78.0-98.0); Mean Platelet Volume 6.7 fL (7.4-10.4); Platelet Count 294 thou/uL (130-400); RBC Distribution Width 14.5 % (11.5-14.5); Red Blood Cell (RBC) Count 4.62 mill/uL (4.20-5.40); White Blood Cell (WBC) Count 8.6 thou/uL (4.8-10.8)
[2019-02-07] MEDS: hydrALAZINE 20 MG/ML VIAL SLOW IVP PRN ×2 (05:14→23:14)
[2019-02-07 05:23] LABS: Anion Gap 15 mmol/L (10-20); BUN (Urea Nitrogen) 9 mg/dL (9.8-20.1); Calc. Creatinine Clearance 67 mL/min (70-130); Calcium 9.3 mg/dL (7.8-10.44); Carbon Dioxide 22 mmol/L (23-31); Chloride 101 mmol/L (98-107); Estimated GFR-MDRD 80; Glucose 167 mg/dL (83-110); Magnesium 1.7 mg/dL (1.6-2.6); Phosphorus 2.7 mg/dL (2.3-4.7); Potassium 3.2 mmol/L (3.5-5.1); Sodium 135 mmol/L (136-145)
[2019-02-07] MEDS ORDERED: Clobetasol 0.05% Cream 15 gm Tube TOP PRN (09:00)
[2019-02-07] MEDS: predniSONE 5 MG TAB PO SCH (09:41)
[2019-02-07] MEDS: Bisoprolol Fumarate 5 MG TAB PO SCH (09:41)
[2019-02-07] MEDS: Amlodipine 5 MG TAB PO SCH ×3 (09:41→20:54)
[2019-02-07] MEDS: Escitalopram Oxalate 10 mg Tablet PO SCH (09:44)
[2019-02-07] MEDS: Sodium Chloride 0.9% 1,000 ML IV SCH (11:11)
[2019-02-07] MEDS ORDERED: Potassium Phosphate 30 MMOL in Sodium Chloride 0.9% 500 ML IVPB SCH (17:30)
--- NOTE | 2019-02-07 19:24 | PRG ---
DATE OF SERVICE: 02/07/2019 SUBJECTIVE: Ms. Hernandez is an 83-year-old woman, who is with a recent traumatic subdural hematoma. The patient presented to the emergency department with depressed mental status. Her CT of the brain revealed residual persistent intracranial hemorrhage with no significant mass effects. There was also mild hydrocephalus. The patient was also found to have a urinary tract infection and was placed on IV antibiotics. This morning, the patient is awake and alert, but refuses to eat when the nurse attempts to assist with feedings. However, Dr. Gatica is able to assist the patient and she eats just fine. Her GCS is E4, V4, M6. OBJECTIVE: VITAL SIGNS: Temperature 97.6, blood pressure 164/78, pulse 88, respirations 21, and SpO2 100%. GENERAL: The patient is awake and alert, in no distress. HEART: Regular rate and rhythm. No murmurs or gallops. LUNGS: Clear bilaterally. Breathing is regular and nonlabored. ABDOMEN: Soft, nontender, and nondistended. EXTREMITIES: A 2+ radial and pedal pulses bilaterally. No ankle edema. NEUROLOGIC: No focal deficits. LABORATORY DATA: WBC 8.6, RBC 4.62, hemoglobin 13.3, hematocrit 40.9, and platelets 294. Sodium 135, potassium 3.2, chloride 101, BUN 9, creatinine 0.70, estimated GFR 80, glucose 167, calcium 9.3, phosphorus 2.7, and magnesium 1.7. DIAGNOSTICS: There are no diagnostics to review today. IMPRESSION: 1. Acute urinary tract infection, currently on antibiotic therapy. 2. Acute traumatic brain injury with residual intracranial hemorrhages. No mass effects. Neurologically improving. 3. Hypokalemia. PLAN: Continue antibiotics. Replace electrolytes. Reinitiate and encourage physical and occupational therapy. Anticipate the patient being discharged back to inpatient rehab in the next day or so. The patient was examined with Dr. Gatica during morning rounds. We will continue to hold the patient's Plavix. We will discontinue the patient's Calderon and see how she tolerates as she came to the ER from rehab with a Calderon in place for urinary retention. Job ID: [id number]
[2019-02-07 19:40] LABS: #Monocytes 0.9 thou/uL (0.11-0.59); %Basophils 0.2 % (0.0-1.0); %Eosinophils 0.4 % (0.0-10.0); %Monocytes 9.1 % (0.0-10.0); %Neutrophils 80.2 % (42.0-75.0); Hemoglobin 12.6 g/dL (12.0-16.0); Mean Corpuscular HGB CONC 32.7 g/dL (32.0-36.0); Mean Corpuscular Hemoglobin 29.1 pg (27.0-31.0); Mean Corpuscular Volume 89.1 fL (78.0-98.0); Platelet Count 333 thou/uL (130-400); RBC Distribution Width 14.5 % (11.5-14.5); Red Blood Cell (RBC) Count 4.31 mill/uL (4.20-5.40); White Blood Cell (WBC) Count 9.9 thou/uL (4.8-10.8)
[2019-02-07] MEDS: Famotidine/PF 20 mg/2ml Vial SLOW IVP SCH (20:45)
[2019-02-07] MEDS: Atorvastatin Calcium 40 MG TAB PO SCH ×2 (20:45→20:54)
[2019-02-08 05:29] LABS: Anion Gap 14 mmol/L (10-20); BUN (Urea Nitrogen) 12 mg/dL (9.8-20.1); Calc. Creatinine Clearance 59 mL/min (70-130); Calcium 9.1 mg/dL (7.8-10.44); Carbon Dioxide 21 mmol/L (23-31); Chloride 104 mmol/L (98-107); Estimated GFR-MDRD 70; Glucose 193 mg/dL (83-110); Magnesium 1.8 mg/dL (1.6-2.6); Phosphorus 4.5 mg/dL (2.3-4.7); Potassium 3.4 mmol/L (3.5-5.1); Sodium 136 mmol/L (136-145)
[2019-02-08] MEDS: hydrALAZINE 20 MG/ML VIAL SLOW IVP PRN (07:16)
[2019-02-08] MEDS ORDERED: Potassium Chloride 40 MEQ in Premix Bag 1 BAG IVPB SCH (07:45)
[2019-02-08] MEDS: Lactated Ringer's 1,000 ML IV SCH (10:09)
[2019-02-08] MEDS: Amlodipine 5 MG TAB PO SCH ×2 (10:15→21:07)
[2019-02-08] MEDS: Escitalopram Oxalate 10 mg Tablet PO SCH (10:16)
[2019-02-08] MEDS: predniSONE 5 MG TAB PO SCH (10:16)
[2019-02-08] MEDS: Bisoprolol Fumarate 5 MG TAB PO SCH (10:17)
--- NOTE | 2019-02-08 14:36 | EKG ---
Test Reason : ER INDICATION Blood Pressure : / mmHG Vent. Rate : 074 BPM Atrial Rate : 074 BPM P-R Int : 144 ms QRS Dur : 086 ms QT Int : 406 ms P-R-T Axes : 023 -36 153 degrees QTc Int : 450 ms Normal sinus rhythm Left axis deviation Inferior-posterior infarct , age undetermined Abnormal ECG Confirmed by ASIF GUEVARA D.O. ([id number]), supervising editor trailer ALMA ULRICH ([id number]) on 02/08/2019 2:36:23 PM Referred By: Confirmed By:ASIF GUEVARA D.O.
--- NOTE | 2019-02-08 17:53 | PRG ---
DATE OF SERVICE: SUBJECTIVE: This is an 83-year-old woman with recent trauma with a subdural hematoma. The patient returned to the emergency room with depressed mental status. The patient is awake and alert. The nurse reports the patient is not eating when assisted. The patient attempts to follow commands. The patient had urinary retention overnight and a Calderon was placed again. OBJECTIVE: VITAL SIGNS: Blood pressure 171/85, pulse 72, respirations 18, and SpO2 of 98% on room air. GENERAL: The patient is awake and alert, attempts to speak, attempts to follow commands, the patient is refusing to eat. LUNGS: Clear bilateral. No wheezing, rales, or rhonchi. Respirations are even and nonlabored, no distress. HEART: Regular rate and rhythm. No murmur. No pedal edema. ABDOMEN: Soft, nontender, nondistended. EXTREMITIES: 2+ pulses in all extremities. NEUROLOGIC: Pupils equal and reactive at 2 mm. GCS is E4, V3, M6. LABORATORY DATA: Sodium 136, potassium 3.4, chloride 104, carbon dioxide 21, BUN 12, creatinine 0.79, estimated GFR 70, glucose 157, calcium 9.1, phosphorus 4.5, magnesium 1.8. DIAGNOSTICS: There are no diagnostics to review today. IMPRESSION: 1. Acute urinary tract infection, currently on antibiotic therapy. 2. Acute traumatic brain injury with residual intracranial hemorrhages. 3. Hypokalemia. PLAN: Continue antibiotics and replace electrolytes. Continue physical and occupational therapy. We will reinstate rehab screen to ensure that the patient is able to go back for placement at inpatient rehab and/or intermediate facility. We will continue to hold the patient's Plavix as directed by Neurosurgery. We will move the patient to med/surg for tomorrow. We will put the patient on low maintenance IV fluids since the patient has minimal intake and the patient had slightly decreased urine output. The plan was discussed with the attending physician. Job ID: [id number]
[2019-02-08] MEDS: Famotidine/PF 20 mg/2ml Vial SLOW IVP SCH (21:05)
[2019-02-08] MEDS: Atorvastatin Calcium 40 MG TAB PO SCH (21:07)
[2019-02-09] MEDS: Lactated Ringer's 1,000 ML IV SCH (04:34)
[2019-02-09] MEDS: Ciprofloxacin 500 MG TAB PO SCH ×4 (06:16→19:48)
[2019-02-09 06:18] LABS: Anion Gap 13 mmol/L (10-20); BUN (Urea Nitrogen) 11 mg/dL (9.8-20.1); Calc. Creatinine Clearance 65 mL/min (70-130); Calcium 8.8 mg/dL (7.8-10.44); Carbon Dioxide 21 mmol/L (23-31); Chloride 102 mmol/L (98-107); Estimated GFR-MDRD 77; Glucose 171 mg/dL (83-110); Magnesium 1.8 mg/dL (1.6-2.6); Potassium 3.3 mmol/L (3.5-5.1); Sodium 133 mmol/L (136-145)
[2019-02-09] MEDS ORDERED: Magnesium 2 GM/50 ML 2 GM in Premix Bag 1 BAG IVPB SCH (08:45)
[2019-02-09] MEDS: Amlodipine 5 MG TAB PO SCH ×2 (08:56→19:46)
[2019-02-09] MEDS: Escitalopram Oxalate 10 mg Tablet PO SCH (08:57)
[2019-02-09] MEDS: predniSONE 5 MG TAB PO SCH (08:57)
[2019-02-09] MEDS: Bisoprolol Fumarate 5 MG TAB PO SCH (08:57)
[2019-02-09] MEDS: Potassium Chloride 20 MEQ/100 ML PREMIX BAG IVPB SCH ×2 (09:04→12:08)
[2019-02-09 09:38] LABS: #Eosinphils 0.1 thou/uL (0.0-0.7); #Lymphocytes 1.1 thou/uL (1.20-3.40); #Monocytes 0.7 thou/uL (0.11-0.59); #Neutrophils 6.6 thou/uL (1.40-6.50); %Eosinophils 0.8 % (0.0-10.0); %Lymphocytes 12.4 % (21.0-51.0); %Monocytes 8.7 % (0.0-10.0); %Neutrophils 78.1 % (42.0-75.0); Hemoglobin 12.1 g/dL (12.0-16.0); Mean Corpuscular HGB CONC 32.6 g/dL (32.0-36.0); Mean Corpuscular Hemoglobin 29.2 pg (27.0-31.0); Mean Corpuscular Volume 89.6 fL (78.0-98.0); Mean Platelet Volume 6.8 fL (7.4-10.4); Platelet Count 281 thou/uL (130-400); RBC Distribution Width 14.4 % (11.5-14.5); Red Blood Cell (RBC) Count 4.14 mill/uL (4.20-5.40); White Blood Cell (WBC) Count 8.5 thou/uL (4.8-10.8)
[2019-02-09] MEDS: Calcium Carbonate + Vit D 1 TAB PO SCH (12:11)
--- NOTE | 2019-02-09 15:05 | PRG ---
DATE OF SERVICE: 02/09/2019 This is Marcelina Garcia PA-C dictating a report for Daniel Gatica DO. SUBJECTIVE: The patient was seen this morning, lying in bed, with no signs of acute distress. She was sleeping, but easily arousable. The patient's daughter said the patient is continuing to speak and making sentences, though not always appropriate. She was very chatty yesterday apparently while sitting up in the chair. P.o. intake improved significantly yesterday. She ate about half of her breakfast this morning, but her daughters reported that yesterday she was doing much better. Her pain is well controlled. She is continuing to work with Physical and Occupational Therapy. She did fail a void trial 2 days ago and her Calderon was replaced. We can attempt to remove the Calderon again tomorrow. She denies any pain, nausea, vomiting, or diarrhea. OBJECTIVE: VITAL SIGNS: Temperature 96.8, pulse 74, respirations 18, oxygen saturation 100% on room air, and blood pressure 159/71. GENERAL: Elderly female, lying in bed, with no signs of acute distress. PULMONARY: Equal chest rise and fall. Clear breath sounds bilaterally. No signs of acute respiratory distress. CARDIAC: Regular rate and rhythm. No murmurs, gallops, or rubs. GI: Abdomen is soft, nontender, and nondistended. EXTREMITIES: 2+ pulses in all extremities. No significant swelling noted. Gross motor and sensation intact in all extremities. NEUROLOGIC: GCS is 14; eyes 4, verbal 4, and motor 6. Pupils equal, round, and reactive to light bilaterally. LABORATORY FINDINGS: White count 8.5, hemoglobin 12, hematocrit 37.1, and platelets 281. Sodium 133, potassium 3.3, chloride 102, carbon dioxide 21, BUN 11, creatinine 0.72, and glucose 171. Phosphorus 3.0. Magnesium 1.8. DIAGNOSTIC FINDINGS: There are no new diagnostic findings to report. ASSESSMENT: 1. Acute urinary tract infection, currently on antibiotics. 2. Intraventricular hemorrhage with hydrocephalus and increased edema. 3. Hypokalemia and hypomagnesemia. PLAN: We will replace electrolytes. Continue physical and occupational therapy. Continue to encourage the patient to eat. Family does very well at bedside to help with feeding, although the patient reports she is not hungry. If you offer her the food on the spoon, she will eat it. Continue to hold Plavix until followup with Neurosurgery. She will be transferred to [place] [id number] today. The patient was discussed with Dr. Gatica this morning after rounds. Job ID: [id number]
[2019-02-09] MEDS: hydrALAZINE 20 MG/ML VIAL SLOW IVP PRN (16:31)
[2019-02-09] MEDS: Famotidine/PF 20 mg/2ml Vial SLOW IVP SCH (19:45)
[2019-02-09] MEDS: Atorvastatin Calcium 40 MG TAB PO SCH (19:47)
[2019-02-09] MEDS ORDERED: Dextrose 5% in Water 1,000 ML IV PRN (20:43)
[2019-02-09] MEDS ORDERED: Dextrose 50% Abboject 50 ML SYRINGE SLOW IVP PRN (20:43)
[2019-02-09] MEDS: HumaLOG 300 UNITS/3 ML VIAL SC PRN (21:13)
[2019-02-10] MEDS: Ciprofloxacin 500 MG TAB PO SCH ×2 (05:33→19:35)
[2019-02-10 06:07] LABS: Hemoglobin A1c 7.8 % (4.0-6.0)
[2019-02-10 06:11] LABS: Band 1 % (5-11); Eosinophils 1 % (0-10); Hemoglobin 12.3 g/dL (12.0-16.0); Lymphocytes 13 % (21-51); MDiff Complete? YES; Mean Corpuscular HGB CONC 32.9 g/dL (32.0-36.0); Mean Corpuscular Hemoglobin 29.3 pg (27.0-31.0); Mean Corpuscular Volume 89.1 fL (78.0-98.0); Monocytes 7 % (0-10); Neutrophil 73 % (42-75); Platelet Count 256 thou/uL (130-400); Platelet Morphology Comment Appears Adequate; RBC Distribution Width 14.5 % (11.5-14.5); Reactive Lymphocytes 5 % (0-10); Red Blood Cell (RBC) Count 4.18 mill/uL (4.20-5.40)
[2019-02-10 06:21] LABS: Anion Gap 13 mmol/L (10-20); BUN (Urea Nitrogen) 12 mg/dL (9.8-20.1); Calc. Creatinine Clearance 65 mL/min (70-130); Calcium 8.8 mg/dL (7.8-10.44); Carbon Dioxide 23 mmol/L (23-31); Chloride 101 mmol/L (98-107); Estimated GFR-MDRD 77; Glucose 158 mg/dL (83-110); Magnesium 2.3 mg/dL (1.6-2.6); Phosphorus 3.1 mg/dL (2.3-4.7); Potassium 3.4 mmol/L (3.5-5.1); Sodium 134 mmol/L (136-145)
[2019-02-10] MEDS ORDERED: Potassium Phosphate 30 MMOL in Sodium Chloride 0.9% 500 ML IVPB SCH (07:45)
[2019-02-10] MEDS ORDERED: Potassium Phosphate 30 MMOL in Sodium Chloride 0.9% 250 ML 250 ML IVPB SCH (08:15)
[2019-02-10] MEDS: Amlodipine 5 MG TAB PO SCH ×2 (09:21→19:34)
[2019-02-10] MEDS: Senokot S 8.6-50 MG TAB PO SCH ×2 (09:21→19:35)
[2019-02-10] MEDS: Bisoprolol Fumarate 5 MG TAB PO SCH (09:21)
[2019-02-10] MEDS: Calcium Carbonate + Vit D 1 TAB PO SCH (09:22)
[2019-02-10] MEDS: Escitalopram Oxalate 10 mg Tablet PO SCH (09:22)
[2019-02-10] MEDS: Polyethylene Glycol 3350 17 GM Packet PO SCH (09:22)
[2019-02-10] MEDS: predniSONE 5 MG TAB PO SCH (09:22)
[2019-02-10] MEDS: HumaLOG 300 UNITS/3 ML VIAL SC PRN ×3 (09:23→16:20)
--- NOTE | 2019-02-10 13:50 | PRG ---
DATE OF SERVICE: 02/10/2019 SUBJECTIVE: The patient was seen this morning, sitting up in bed. The patient was alert and responsive to questions. She has been tolerating a diet well. She has had some urinary retention, so she has a Calderon in place. Family at bedside and reporting that the patient is doing well. OBJECTIVE: VITAL SIGNS: Temperature 97.8, pulse 68, blood pressure 155/79, respirations 20, and O2 of 97% on room air. GENERAL: This is a well-appearing elderly female, sitting up in bed with no signs of acute distress. PULMONARY: Lungs are bilaterally clear to auscultation. Equal chest rise and fall. No signs of acute respiratory distress. CARDIAC: Regular rate and rhythm. No murmurs, rubs, or gallops. GASTROINTESTINAL: Abdomen is soft, nontender, and nondistended. EXTREMITIES: 2+ pulses in all extremities. No significant swelling noted. NEUROLOGIC: GCS is 14; 4, 4, 6. LABORATORY FINDINGS: White blood cells 7.0, hemoglobin 12.3, hematocrit 37.2, and platelets 256. [id number] glucose 170, 212. Hemoglobin A1c 7.8. DIAGNOSTIC FINDINGS: There are no new diagnostic findings to report. ASSESSMENT: 1. Acute urinary tract infection, currently on antibiotics. 2. Intraventricular hemorrhage with hydrocephalus and increased edema. 3. Hypokalemia. 4. Hypomagnesemia, resolved. 5. Acute urinary retention. 6. Diabetes mellitus, type 2. PLAN: The patient will have electrolytes replaced today. Continue physical and occupational therapy. The patient continues to eat well. We will discontinue Plavix until the patient follows up with Neurosurgery. The patient will be placed on sliding-scale insulin for her elevated A1c. Family reports the patient has had elevated blood sugars in the past. The patient continues on a low-dose steroid. We will have the patient follow up with primary care physician for further management of her diabetes. The patient will remain on Cipro for a total of 10 days of treatment. The patient was seen and examined with Dr. Gatica this morning during rounds. Job ID: [id number]
[2019-02-10] MEDS ORDERED: Acetaminophen 325 MG TAB PO PRN (14:53)
[2019-02-10] MEDS: Atorvastatin Calcium 40 MG TAB PO SCH (19:35)
[2019-02-11] MEDS: Ciprofloxacin 500 MG TAB PO SCH ×3 (06:04→19:54)
[2019-02-11 07:34] LABS: Anion Gap 12 mmol/L (10-20); BUN (Urea Nitrogen) 14 mg/dL (9.8-20.1); Calc. Creatinine Clearance 60 mL/min (70-130); Calcium 9.3 mg/dL (7.8-10.44); Carbon Dioxide 22 mmol/L (23-31); Chloride 103 mmol/L (98-107); Estimated GFR-MDRD 71; Glucose 141 mg/dL (83-110); Magnesium 2.1 mg/dL (1.6-2.6); Phosphorus 4.1 mg/dL (2.3-4.7); Potassium 3.4 mmol/L (3.5-5.1); Sodium 134 mmol/L (136-145)
[2019-02-11] MEDS ORDERED: Potassium Chloride 20 MEQ TAB PO SCH (08:00)
[2019-02-11] MEDS: Escitalopram Oxalate 10 mg Tablet PO SCH (08:43)
[2019-02-11] MEDS: Senokot S 8.6-50 MG TAB PO SCH ×2 (08:43→19:55)
[2019-02-11] MEDS: Polyethylene Glycol 3350 17 GM Packet PO SCH (08:43)
[2019-02-11] MEDS: predniSONE 5 MG TAB PO SCH (08:43)
[2019-02-11] MEDS: Amlodipine 5 MG TAB PO SCH ×2 (08:43→19:54)
[2019-02-11] MEDS: Calcium Carbonate + Vit D 1 TAB PO SCH (08:43)
[2019-02-11] MEDS: Bisoprolol Fumarate 5 MG TAB PO SCH (08:44)
--- NOTE | 2019-02-11 10:20 | ULT ---
ULTRASOUND DOPPLER DUPLEX VENOUS BILATERAL LOWER EXTREMITIES: DATE: 02/11/2019 HISTORY: Decreased mobility and bilateral lower extremity edema in 83-year-old female TECHNIQUE: Grayscale, color-flow, and spectral analysis, of major veins of bilateral lower extremities. FINDINGS: There is demonstration of blood flow with normal compressibility, of the bilateral common femoral, pr ofunda femoral, greater saphenous, femoral, popliteal, and posterior tibial, veins. IMPRESSION: Negative. No deep venous thrombosis of bilateral lower extremities.
[2019-02-11] MEDS: HumaLOG 300 UNITS/3 ML VIAL SC PRN (11:46)
--- NOTE | 2019-02-11 13:00 | PRG ---
DATE OF SERVICE: 02/11/2019 SUBJECTIVE: Well-appearing elderly female, sitting up in bed. The patient is minimally interactive today. She does respond to some questions. The patient has been eating about 25% of her meal and tolerating some fluids as well as supplement. The patient continues have a Calderon in place and is doing well. OBJECTIVE: VITAL SIGNS: Temperature 97.7, pulse 72, blood pressure 149/81, respirations 16, O2 96% on room air. GENERAL: Well-appearing elderly female, sitting in bed. No signs of acute distress. CARDIAC: Regular rate and rhythm. No murmurs, rubs, or gallops. PULMONARY: Lungs are bilaterally clear to auscultation. Equal chest rise and fall. No signs of acute respiratory distress. GASTROINTESTINAL: Abdomen is soft, nontender, nondistended. EXTREMITIES: 2+ pulses in all extremities. No significant swelling noted. NEUROLOGIC: GCS 14. LABORATORY FINDINGS: Sodium 134, potassium 3.4, chloride 103, carbon dioxide 22, BUN 14, creatinine 0.78. DIAGNOSTIC FINDINGS: Venogram on 02/11/2019, negative. No deep vein thrombosis of bilateral lower extremities. ASSESSMENT: 1. Acute urinary tract infection, on antibiotics. 2. Intraventricular hemorrhage with hydrocephalus and increased edema. 3. Hypokalemia. 4. Hypomagnesemia, resolved. 5. Acute urinary retention. 6. Diabetes mellitus type 2. PLAN: The patient will continue physical and occupational therapy. The patient will hold Plavix until patient follows up with Neurosurgery. The patient will be continued on sliding scale insulin for elevated A1c and follow up outpatient for her diabetes. The patient will remain on Cipro for a total of 10 days of treatment. The patient was seen and examined with Dr. Gatica this morning during rounds. All questions were answered. Family and patient are in agreement with the plan. The patient is planning to discharge to rehab once placement can be found. Job ID: [id number]
[2019-02-11] MEDS: Atorvastatin Calcium 40 MG TAB PO SCH (19:54)
[2019-02-12 05:52] LABS: Anion Gap 12 mmol/L (10-20); BUN (Urea Nitrogen) 15 mg/dL (9.8-20.1); Calc. Creatinine Clearance 63 mL/min (70-130); Calcium 9.4 mg/dL (7.8-10.44); Carbon Dioxide 23 mmol/L (23-31); Chloride 105 mmol/L (98-107); Estimated GFR-MDRD 76; Glucose 145 mg/dL (83-110); Phosphorus 3.3 mg/dL (2.3-4.7); Sodium 136 mmol/L (136-145)
[2019-02-12] MEDS: Calcium Carbonate + Vit D 1 TAB PO SCH (08:53)
[2019-02-12] MEDS: Ciprofloxacin 500 MG TAB PO SCH (08:53)
[2019-02-12] MEDS: Escitalopram Oxalate 10 mg Tablet PO SCH (08:53)
[2019-02-12] MEDS: predniSONE 5 MG TAB PO SCH (08:54)
[2019-02-12] MEDS: Senokot S 8.6-50 MG TAB PO SCH (08:54)
[2019-02-12] MEDS: Amlodipine 5 MG TAB PO SCH (08:54)
[2019-02-12] MEDS: Bisoprolol Fumarate 5 MG TAB PO SCH (08:55)
[2019-02-12] MEDS: Polyethylene Glycol 3350 17 GM Packet PO SCH (08:55)
[2019-02-12] MEDS: HumaLOG 300 UNITS/3 ML VIAL SC PRN (15:44)
[2019-02-12 15:51] VITALS: BP 151/76; TEMP 97.4
--- NOTE | 2019-02-12 17:04 | DIS ---
DATE OF ADMISSION: 02/05/2019 DATE OF DISCHARGE: 02/12/2019 RESIDENT: Asya Melissa MD ADMITTING ATTENDING: Daniel Gatica DO DISCHARGE ATTENDING: Daniel Gatica DO CONSULTS: 1. Pulmonology, Dr. Newton, 02/06/2019. 2. Neurosurgery, Marcos Sanz PA-C, 02/05/2019. PROCEDURES: 1. Chest x-ray on 02/05/2019, no evidence of acute cardiopulmonary disease. 2. Brain CT on 02/06/2019, re-demonstration of multifocal intracranial hemorrhage, with associated intraventricular hemorrhage extension and ventriculomegaly. Grossly stable to previous day's exam. 3. Venogram 02/11/2019, impression; no DVT of bilateral lower extremities. PRIMARY DIAGNOSES: 1. Acute urinary tract infection. 2. Intraventricular hemorrhage with hydrocephalus and increased edema. SECONDARY DIAGNOSES: 1. Hypokalemia. 2. Hypomagnesemia, resolved. 3. Acute urinary retention. 4. Diabetes mellitus, type 2. DISCHARGE MEDICATIONS: 1. Tylenol 650 mg p.o. q.6 hours p.r.n. for [id number] pain. 2. Dulcolax 10 mg rectally p.r.n. for constipation. 4. MiraLAX 17 g p.o. daily. 5. Senokot 2 tabs p.o. b.i.d. 6. Ciprofloxacin 500 mg p.o. at 6:00 in the morning and 2:00 in the afternoon for a total of 9 doses. 7. Econazole nitrate one application topical daily as needed. 8. Triamcinolone acetonide (Kenalog) 0.1% cream one application topical 3 times daily p.r.n. for rash, topical irritation. 9. Calcipotriene cream one application topical b.i.d. as needed. 10. Clobetasol one application topical daily as needed p.r.n. 11. Protonix 40 mg p.o. daily. 12. Bisoprolol 5 mg p.o. daily. 13. Escitalopram 5 mg p.o. daily. 14. Lipitor 40 mg p.o. every evening. 15. Amlodipine 2.5 mg p.o. b.i.d. 16. Calcium citrate/vitamin D3 one each p.o. daily. Discontinued medications: 1. Seroquel 25 mg p.o. every evening. 2. Clopidogrel 75 mg p.o. daily. 3. Tramadol 50 mg p.o. q.6 hours p.r.n. HISTORY OF PRESENT ILLNESS AND HOSPITAL COURSE: This is an 83-year-old female, known to the ED for an unwitnessed fall, found down on January 27, 2019. At that time, she was admitted to the Trauma Service for TBI and subsequently discharged on January 30 to encompass the rehabilitation. Family at the bedside noted that the patient had continued to decompensate starting February 01. Workup was completed and originally UTI was diagnosed and treated with Keflex. The patient's mentation continued to decline throughout the day and she was subsequently sent back to the ED for further evaluation. CT imaging demonstrated increase in intraventricular hemorrhage with increase in ventricular size and hydrocephalus. She also had increased edema and hemorrhage in left cerebral hemisphere. Trauma Service and Neurosurgery were consulted for evaluation of the patient. On our evaluation, the patient appeared uncomfortable, but was not able to verbalize as to what was making her uncomfortable. She did smile and occasionally participate in exam, but there is significant decline in her GCS since her time of discharge. Dr. Matthew with Neurosurgery was consulted to evaluate the patient. No neurosurgical interventions in regard to her subdural hematoma were warranted. It was decided not to place an external ventricular drain given that her neurologic status improved. Her clopidogrel was discontinued. The patient will follow up with Neurology as outpatient and it will be decided at that time whether she will continue or discontinue that medication. Her repeat brain CT was stable. The patient will be treated for a total of 10 days for UTI with ciprofloxacin. She will continue with physical and occupational therapy at her rehab facility. She will also need to follow up outpatient for her elevated A1c and her diabetes. Her A1c in the hospital was 7.8. DISPOSITION: Stable. DISCHARGE INSTRUCTIONS: 1. Location: [facility]. 2. Diet: Diabetic diet with Glucerna b.i.d. and texture pureed with extra gravy liquid, nectar thick liquids by spoon. 3. Activity: As tolerated. 4. Follow up with Dr. Antione Matthew in 2 to 4 weeks with a repeat head CT. Please call their office to schedule. No need to follow up with Dr. Ohaju with Trauma. Please call with questions. Follow up with PCP in 1 to 2 weeks for diabetes management. Job ID: [id number] TEGAN
== END 2019-02-12 16:42 | DRG 85 ==
LOC: ERS 13:27 → CCU 18:07 → IMCU/EMU 02-06 20:29 → SURG A 02-09 15:42
PROVIDERS: ADMIT Surgery; ATTEND Surgery
DX: S06.350A Traumatic hemorrhage of left cerebrum without loss of consciousness, initial encounter (principal); S06.1X0A Traumatic cerebral edema without loss of consciousness, initial encounter; G91.0 Communicating hydrocephalus; N39.0 Urinary tract infection, site not specified; I10 Essential (primary) hypertension; I25.10 Atherosclerotic heart disease of native coronary artery without angina pectoris; E78.5 Hyperlipidemia, unspecified; M19.90 Unspecified osteoarthritis, unspecified site; E11.9 Type 2 diabetes mellitus without complications; E87.6 Hypokalemia; E83.42 Hypomagnesemia; F32.9 Major depressive disorder, single episode, unspecified; B96.20 Unspecified Escherichia coli [E. coli] as the cause of diseases classified elsewhere; R33.9 Retention of urine, unspecified; W19.XXXA Unspecified fall, initial encounter; R40.2352 Coma scale, best motor response, localizes pain, at arrival to emergency department; R40.2212 Coma scale, best verbal response, none, at arrival to emergency department; R40.2142 Coma scale, eyes open, spontaneous, at arrival to emergency department; Y92.9 Unspecified place or not applicable; Z79.899 Other long term (current) drug therapy; Z88.8 Allergy status to other drugs, medicaments and biological substances; Z79.52 Long term (current) use of systemic steroids
CPT/HCPCS: 36415; 36416; 70450; 71045; 80048; 80053; 83036; 83605; 83735; 84100; 85007; 85025; 85027; 85610; 85730; 93005; 93970; J0131; J0360; J0744; J3475; J3480; J7050; J7512; S0028

== ENCOUNTER 2019-03-04 13:44 | Inpatient (IN) | payer MEDICARE ==
[2019-03-04 14:50] LABS: #Lymphocytes 0.6 thou/uL (1.20-3.40); #Monocytes 0.4 thou/uL (0.11-0.59); #Neutrophils 4.2 thou/uL (1.40-6.50); %Basophils 0.2 % (0.0-1.0); %Eosinophils 0.5 % (0.0-10.0); %Lymphocytes 11.1 % (21.0-51.0); %Monocytes 7.2 % (0.0-10.0); Hemoglobin 12.1 g/dL (12.0-16.0); Mean Corpuscular HGB CONC 33.5 g/dL (32.0-36.0); Mean Corpuscular Volume 89.7 fL (78.0-98.0); Mean Platelet Volume 6.9 fL (7.4-10.4); Platelet Count 156 thou/uL (130-400); RBC Distribution Width 15.8 % (11.5-14.5); Red Blood Cell (RBC) Count 4.04 mill/uL (4.20-5.40); White Blood Cell (WBC) Count 5.1 thou/uL (4.8-10.8)
--- NOTE | 2019-03-04 14:53 | CT ---
PET CT WITHOUT CONTRAST: COMPARISON: 02/06/2019. HISTORY: Previous intracranial hemorrhage. The patient is now having emesis and dizziness. FINDINGS: There are isodensities along the left and right frontal convexities compatible with chronic subdural hematomas. Subdural collections extend to the parietal lobe, near the vertex. There is significant mass effect upon both frontal lobes. The left extraaxial collection measures approximately 1.5 cm an d the right extraaxial collection measures approximately 1.3 cm. There is no midline shift. Basilar cisterns are patent. Cortical chavez-white matter differentiation is preserved. No evidence of hydrocephalus. Remote insult in the left cerebellar hemisphere with volume loss. Adequate aeration of the mastoid air cells. There is sphenoid sinus disease. Calvarium is intact. 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 There is significant mass effect upon both frontal lobes. Neurosu rgical consultation is recommended. Results of the study discussed with Aramis Giraldo 11/04/2018 at 2:34 p.m. CODE CR POS: OFF
[2019-03-04 14:58] LABS: INR-International Normal Ratio 1.1; PTT 25.9 SEC (22.9-36.1); Prothrombin Time 13.8 SEC (12.0-14.7)
[2019-03-04 15:16] LABS: ALT (SGPT) 20 U/L (8-55); AST (SGOT) 26 U/L (5-34); Albumin 3.6 g/dL (3.4-4.8); Alkaline Phosphatase 65 U/L (40-150); Anion Gap 11 mmol/L (10-20); BUN (Urea Nitrogen) 8 mg/dL (9.8-20.1); Bilirubin, Total 0.6 mg/dL (0.2-1.2); Calc. Creatinine Clearance 0 mL/min (70-130); Calcium 9.1 mg/dL (7.8-10.44); Carbon Dioxide 28 mmol/L (23-31); Chloride 104 mmol/L (98-107); Estimated GFR-MDRD 71; Globulin 2.3 g/dL (2.4-3.5); Glucose 150 mg/dL (83-110); Lipase 95 U/L (8-78); Potassium 3.4 mmol/L (3.5-5.1); Protein, Total 5.9 g/dL (6.0-8.3); Sodium 140 mmol/L (136-145)
[2019-03-04] MEDS ORDERED: Ondansetron PF 4 MG/2 ML Vial IVP PRN (16:30)
[2019-03-04] MEDS ORDERED: CCU Electrolyte Replacement 1 EACH IVPB ONE (16:30)
[2019-03-04] MEDS ORDERED: Acetaminophen 325 MG TAB PO PRN (16:30)
[2019-03-04] MEDS ORDERED: Potassium Chloride 40 MEQ in Premix Bag 1 BAG IVPB PRN (17:51)
[2019-03-04] MEDS ORDERED: Potassium Chloride 40 MEQ in Sodium Chloride 0.9% 250 ML 250 ML IVPB PRN (17:51)
[2019-03-04] MEDS ORDERED: Potassium Phosphate 15 MMOL in Sodium Chloride 0.9% 250 ML 250 ML IV PRN (17:51)
[2019-03-04] MEDS ORDERED: Potassium Phosphate 12 MMOL in Sodium Chloride 0.9% 250 ML 250 ML IV PRN (17:51)
[2019-03-04] MEDS ORDERED: Potassium Chloride 20 MEQ TAB PO PRN (17:51)
[2019-03-04] MEDS ORDERED: Potassium Phosphate 9 MMOL in Sodium Chloride 0.9% 100 ML IVPB PRN (17:51)
[2019-03-04] MEDS ORDERED: CCU ELECTROLYTE REPLACEMENT PROTOCOL FS PRN (17:51)
[2019-03-04] MEDS ORDERED: Magnesium Oxide 400 MG TAB PO PRN ×2 (17:51)
[2019-03-04] MEDS ORDERED: PHOS-NAK 1 PKT PACK PO PRN ×2 (17:51)
[2019-03-04] MEDS ORDERED: Magnesium 2 GM/50 ML 2 GM in Premix Bag 1 BAG IVPB PRN (17:51)
[2019-03-04 18:57] LABS: Lactic Acid 1.2 mmol/L (0.5-2.2)
[2019-03-04] MEDS: Labetalol HCl 100 MG/20 ML VIAL SLOW IVP PRN (19:19)
[2019-03-04] MEDS: Sodium Chloride 0.9% 1,000 ML IV SCH (22:37)
[2019-03-04] MEDS: Famotidine/PF 20 mg/2ml Vial SLOW IVP SCH (22:37)
[2019-03-05] MEDS: Labetalol HCl 100 MG/20 ML VIAL SLOW IVP PRN (04:23)
[2019-03-05 06:01] LABS: #Lymphocytes 0.7 thou/uL (1.20-3.40); #Monocytes 0.4 thou/uL (0.11-0.59); #Neutrophils 2.6 thou/uL (1.40-6.50); %Basophils 0.2 % (0.0-1.0); %Eosinophils 0.9 % (0.0-10.0); %Lymphocytes 18.1 % (21.0-51.0); %Monocytes 9.6 % (0.0-10.0); %Neutrophils 71.1 % (42.0-75.0); Hemoglobin 11.1 g/dL (12.0-16.0); Mean Corpuscular HGB CONC 32.6 g/dL (32.0-36.0); Mean Corpuscular Hemoglobin 29.4 pg (27.0-31.0); Mean Corpuscular Volume 90.2 fL (78.0-98.0); Mean Platelet Volume 7.1 fL (7.4-10.4); Platelet Count 135 thou/uL (130-400); RBC Distribution Width 15.5 % (11.5-14.5); Red Blood Cell (RBC) Count 3.79 mill/uL (4.20-5.40); White Blood Cell (WBC) Count 3.7 thou/uL (4.8-10.8)
[2019-03-05 06:18] LABS: Anion Gap 14 mmol/L (10-20); BUN (Urea Nitrogen) 8 mg/dL (9.8-20.1); Calc. Creatinine Clearance 66 mL/min (70-130); Carbon Dioxide 23 mmol/L (23-31); Chloride 106 mmol/L (98-107); Estimated GFR-MDRD 86; Glucose 102 mg/dL (83-110); Potassium 3.7 mmol/L (3.5-5.1); Sodium 139 mmol/L (136-145)
[2019-03-05] MEDS ORDERED: Labetalol HCl 100 MG/20 ML VIAL SLOW IVP SCH (06:30)
--- NOTE | 2019-03-05 07:55 | HP ---
HISTORY OF PRESENT ILLNESS: Ms. Hernandez is an 83-year-old woman presenting to the emergency department for progressive altered mental status and reduced mobility. According to her two daughters, she was admitted twice in the month of January, one towards the beginning of the month and then the second on the . The first was after a fall and we actually admitted her for small subarachnoid hemorrhage. The second admission was for a second fall with altered mental status and bilateral subdural hematoma collections that appeared to be at that time, subacute to chronic in nature. Today, a new CT scan of the brain and the reason that we were consulted is revisualization of bilateral subdurals, although they have increased significantly in size and are flattening the bilateral cerebral convexities. Again, daughters at bedside have reported that over the last 3 to 4 days since she has been home from rehab, her mobility has drastically reduced to the point where she will not get out of bed or feels incapable of doing so, whereas before, she had been walking with a walker without any other help. Cognitively, she appears close to her baseline. According to daughters, she is confused and is not sure what year it is, and requests to see her who several years ago. PAST MEDICAL HISTORY: Significant for hypertension, coronary artery disease, hyperlipidemia, psoriatic arthritis, and depression. PAST SURGICAL HISTORY: Hysterectomy and appendectomy. CURRENT MEDICATIONS: 1. Amlodipine. 2. Bisoprolol. 3. Lexapro. 4. Protonix. 5. Vitamin D. 6. Prednisone. 7. Lipitor. 8. Seroquel. 9. Clobetasol cream. 10. Calcipotriene cream. 11. Triamcinolone cream. 12. Econazole cream. ALLERGIES: TO HYDROCODONE, LISINOPRIL, AND LOSARTAN. PHYSICAL EXAMINATION: The patient is alert, only oriented to her name. She does not have consistent focus and is unable to provide much of the history or appropriate interaction during her exam. She does move all 4 extremities. Pupils are equal, round, and reactive to light. Extraocular movements are intact. She has no motor deficits in the bilateral upper and bilateral lower extremities. ASSESSMENT: Bilateral subdural hematomas. PLAN: I had discussed with the patient and daughters that recommendation would be to evacuate these bilateral hematomas via ana hole drainage to prevent further decline and restore her ability to ambulate. The daughters are in agreement. Again, the patient does not appear appropriately, able to respond at this time. We will re-evaluate in the morning and anticipate bilateral subdural drainage tomorrow. Job ID: [id number]
[2019-03-05] MEDS ORDERED: Bupivacaine HCl 0.5%/Epinephrine 1:200,000/PF 30 ml Vial ONE (08:30)
[2019-03-05] MEDS ORDERED: Lidocaine 0.5%/Epinephrine 1:200,000 50 ml Vial ONE (08:38)
[2019-03-05] MEDS ORDERED: Fentanyl 100 MCG/2 ML VIAL ONE (08:39)
[2019-03-05] MEDS ORDERED: Non-Formulary Item 1 EACH (Prednisone [Prednisone] 5 MG) PO SCH (09:00)
[2019-03-05] MEDS ORDERED: Non-Formulary Item 1 EACH (Escitalopram Oxalate [Lexapro] 5 MG) PO SCH (09:00)
--- NOTE | 2019-03-05 09:39 | PRG ---
DATE OF SERVICE: 03/05/2019 Ms. Hernandez is an 83-year-old female admitted last evening for altered mental status and diminished mobility. She had just been dismissed from rehab this past week after an inpatient admission for a fall with traumatic subarachnoid hemorrhage. She has made progress in rehab, but had declined somewhat precipitously since discharge to home. Upon arrival at [facility], she had a CT scan performed which showed 2 large extra-axial fluid collections consistent with either chronic subdural or subdural hygromas over the cerebral convexity with substantial mass effect. There is no midline shift, but there is compression of the gyri and flattening of the convexities. I had a discussion with her daughter, Geovanna, and reviewed with her the diagnosis, the imaging and what we propose, which is a bilateral bur hole drainage and placement of subdural drains. I answered all of her questions. I discussed risks, benefits, and alternatives, and she has provided informed consent. I met with Ms. Hernandez herself in Day Stay area today, where she is confused, but awake and somewhat agitated. Job ID: [id number]
[2019-03-05] MEDS ORDERED: Bacitracin Zinc Ointment 30 gm TUBE ONE (09:56)
[2019-03-05] MEDS ORDERED: Ondansetron HCl/PF 4 MG/2 ML Vial IVP PRN (10:18)
[2019-03-05] MEDS ORDERED: Promethazine HCl 25 MG/ML VIAL SLOW IVP PRN (10:18)
[2019-03-05] MEDS ORDERED: Promethazine HCl 25 MG/ML VIAL IM PRN (10:18)
--- NOTE | 2019-03-05 10:49 | OP ---
DATE OF PROCEDURE: 03/05/2019 MOLD DRESSER: Jere Dorantes PA-C. INDICATION: Prevent neurologic decline. DIAGNOSIS: Bilateral extra-axial fluid collections. PROCEDURE PERFORMED: Bilateral frontal ana hole placement with evacuation of hematoma and placement of subdural drain. ANESTHESIA: General. DESCRIPTION OF PROCEDURE: The patient was brought into the operating room and placed under general anesthesia. She was placed on table in supine position. Two small linear incisions were planned, one on the left, one on the right along the frontal bone. These areas were prepped and draped in the usual sterile fashion. They were infiltrated with a small degree of lidocaine with epinephrine. After an appropriate preoperative pause, the incisions were created. Self-retaining retractors were placed. A ana hole was placed in the left and the right. Cruciate incisions were made within the dura, where there was egress of chronic appearing hematoma. This was irrigated away. Red rubber tube drains were then placed in the sub dural space and brought out through separate puncture sites. The wounds were then irrigated and hemostasis maintained. The wound was closed in anatomic layers and a pressure dressing was applied. There were no known procedural complications. Job ID: [id number]
[2019-03-05] MEDS ORDERED: Morphine 2 MG/ML SYRINGE SLOW IVP PRN (13:14)
[2019-03-05] MEDS: CEFAZOLIN 2 GM in Premix Bag 1 BAG IV SCH ×2 (14:54→22:21)
[2019-03-05] MEDS: Sodium Chloride 0.9% 1,000 ML IV SCH (14:54)
[2019-03-05] MEDS: predniSONE 5 MG TAB PO SCH (14:57)
[2019-03-05] MEDS: Famotidine/PF 20 mg/2ml Vial SLOW IVP SCH ×2 (14:58→20:43)
[2019-03-05] MEDS: Escitalopram Oxalate 10 mg Tablet PO SCH (14:59)
[2019-03-05] MEDS ORDERED: PROPOFOL 200 MG/20 ML VIAL ONE (14:59)
[2019-03-05] MEDS: Amlodipine 5 MG TAB PO SCH ×2 (14:59→20:44)
[2019-03-05] MEDS: Bisoprolol Fumarate 5 MG TAB PO SCH (14:59)
[2019-03-05] MEDS ORDERED: Lidocaine 1% PF 5 ML VIAL ONE (14:59)
[2019-03-05] MEDS ORDERED: Dexamethasone 20 MG/5 ML VIAL ONE (14:59)
[2019-03-05] MEDS ORDERED: Ondansetron PF 4 MG/2 ML Vial ONE (14:59)
[2019-03-05] MEDS ORDERED: Nystatin Powder 15 GM BOT TOP PRN (15:08)
[2019-03-05] MEDS: Atorvastatin Calcium 40 MG TAB PO SCH (20:44)
[2019-03-05] MEDS ORDERED: Prevnar 13-Val Conj/PF 0.5 ML SYRINGE IM ONE (21:00)
--- NOTE | 2019-03-05 21:34 | CON ---
DATE OF CONSULTATION: 03/05/2019 CONSULTING PHYSICIAN: Neurosurgeons. REASON FOR CONSULTATION: CCU management. HISTORY OF PRESENT ILLNESS: Ms. Hernandez is an 83-year-old female, who underwent ana hole placement in both sikhism areas earlier today for subdural hematomas that were enlarging in size. I am seeing her in the ICU. She is currently somewhat obtunded after surgery. Her family is at the bedside. PAST MEDICAL HISTORY: 1. Hypertension. 2. Coronary artery disease. 3. Hyperlipidemia. 4. Psoriatic arthritis. 5. Depression. PAST SURGICAL HISTORY: 1. Hysterectomy. 2. Appendectomy. OUTPATIENT MEDICATIONS: Reviewed. See current medication section on the chart. ALLERGIES: HYDROCODONE, LISINOPRIL, LOSARTAN. SOCIAL HISTORY: Nonsmoker. Does not consume alcohol. Does not use illicit substances. Did smoke, but quit over 20 years ago. REVIEW OF SYSTEMS: Cannot be obtained, because the patient is obtunded. PHYSICAL EXAMINATION: VITAL SIGNS: Temperature is 98.9, pulse 63, blood pressure 178/70, O2 saturation 99%, respiratory rate 16. GENERAL: The patient is lying supine in bed. She has a drain coming out of temporal regions bilaterally. Pupils are reactive. Sclerae anicteric. Oropharynx clear. NECK: Without adenopathy or JVD. LUNGS: Clear to auscultation. CARDIAC: S1-S2 regular without audible murmur. ABDOMEN: Soft, nontender. EXTREMITIES: No clubbing, cyanosis, or edema. LABORATORY DATA: White blood cell count 3.7, hematocrit 34.1, and platelet count 135. Sodium 139, potassium 3.7, chloride 106, CO2 of 23, BUN 8, creatinine 0.6, glucose 102. ASSESSMENT: 1. Status post evacuation of subdural hematoma. 2. History hypertension. 3. History of coronary artery disease. 4. History hyperlipidemia. 5. Chronic steroid use. PLAN: 1. Resume home medications-done by neurosurgical PAs. 2. Monitor in CCU overnight. 3. No acute pulmonary critical care issues. We will be happy to follow with you while she is in the CCU. Job ID: [id number]
[2019-03-06] MEDS: hydrALAZINE 20 MG/ML VIAL SLOW IVP PRN ×3 (05:26→15:29)
[2019-03-06] MEDS: CEFAZOLIN 2 GM in Premix Bag 1 BAG IV SCH ×3 (05:49→22:02)
[2019-03-06] MEDS: Sodium Chloride 0.9% 1,000 ML IV SCH ×2 (06:09→21:51)
[2019-03-06 06:15] VITALS: BMI 25.9
[2019-03-06 08:13] LABS: #Lymphocytes 0.6 thou/uL (1.20-3.40); #Monocytes 0.5 thou/uL (0.11-0.59); #Neutrophils 5.5 thou/uL (1.40-6.50); %Basophils 0.3 % (0.0-1.0); %Eosinophils 0.2 % (0.0-10.0); %Lymphocytes 9.5 % (21.0-51.0); %Monocytes 7.9 % (0.0-10.0); %Neutrophils 82.1 % (42.0-75.0); Hemoglobin 12.5 g/dL (12.0-16.0); Mean Corpuscular HGB CONC 33.5 g/dL (32.0-36.0); Mean Corpuscular Volume 89.5 fL (78.0-98.0); Mean Platelet Volume 6.8 fL (7.4-10.4); Platelet Count 158 thou/uL (130-400); RBC Distribution Width 15.5 % (11.5-14.5); Red Blood Cell (RBC) Count 4.16 mill/uL (4.20-5.40); White Blood Cell (WBC) Count 6.6 thou/uL (4.8-10.8)
[2019-03-06 08:35] LABS: Anion Gap 10 mmol/L (10-20); BUN (Urea Nitrogen) 6 mg/dL (9.8-20.1); Calc. Creatinine Clearance 54 mL/min (70-130); Calcium 9.8 mg/dL (7.8-10.44); Carbon Dioxide 30 mmol/L (23-31); Chloride 102 mmol/L (98-107); Estimated GFR-MDRD 71; Glucose 106 mg/dL (83-110); Potassium 3.4 mmol/L (3.5-5.1); Sodium 139 mmol/L (136-145)
[2019-03-06] MEDS: Amlodipine 5 MG TAB PO SCH ×2 (10:06→21:49)
[2019-03-06] MEDS: Bisoprolol Fumarate 5 MG TAB PO SCH (10:07)
[2019-03-06] MEDS: Escitalopram Oxalate 10 mg Tablet PO SCH (10:07)
[2019-03-06] MEDS: predniSONE 5 MG TAB PO SCH (10:08)
[2019-03-06] MEDS: Docusate 100 MG CAP PO PRN (10:18)
[2019-03-06] MEDS: Famotidine/PF 20 mg/2ml Vial SLOW IVP SCH (12:04)
--- NOTE | 2019-03-06 12:34 | PRG ---
DATE OF SERVICE: 03/06/2019 Ms. Hernandez is now postop day #1, following bilateral subdural evacuation via ana holes. She is much more alert and interactive. However, she is still confused and frequently makes statements that do not necessarily fit the situation or make complete sense, frequently telling me that I am one of her children and padding one of the nurses on her head saying that she is her daughter. All this is frankly not true. Her incisions look great. She has had minimal drainage out of the left intracranial MARIA ALEJANDRA drain and has had around 60 mL out of the right. We will remove both these today as the drainage had stopped overnight. At this point, she will be transferred to the floor and begin to mobilize. Rehab has been consulted and we will look for their input and hopefully ability to transfer out as soon as possible. From our standpoint, she could be discharged at any time. Job ID: [id number]
--- NOTE | 2019-03-06 15:14 | PQF ---
NII CORDERO JAMES BRADLEY MD [id number] CLINICAL DOCUMENTATION IMPROVEMENT CLARIFICATION FORM: ICD-10 Updated PLEASE DO AN ADDENDUM TO THE PROGRESS NOTE WITH ANY DOCUMENTATION UPDATES OR ADDITIONS AND CARRY THROUGH TO DC SUMMARY. THANK YOU. DATE: 03/06/19 ATTN:DR. Lb CORTES Please exercise your independent, professional judgment in responding to the clarification form. Clinical indicators are provided on the bottom of this form for your review. Please check appropriate box(s): Encephalopathy: Type: [X] Acute [ ] Subacute [ ] Chronic Etiology: [ ] Hypertensive [ ] Metabolic [ ] Toxic [ ] Unspecified [ ] in the setting of underlying dementia [X] Other (please specify) - Traumatic [X] Transient Alteration of Awareness [ ] Other diagnosis [ ] Unable to determine In addition, please specify: Present on Admission (POA): [X] Yes [ ] No [ ] Unable to determine For continuity of documentation, please document condition throughout progress notes and discharge summary. Thank You. CLINICAL INDICATORS - SIGNS / SYMPTOMS / LABS 03/05 H & P PONDER : PT PRESENTED TO ED WITH PROGRESSIVE ALTERED MENTAL STATUS AND REDUCED MOBILITY 03/[address]: THERE IS SIGNIFICANT MASS EFFECT UPON BOTH FRONTAL LOBES. 03/05 PONDER DXl: BILATERAL SUBDURAL HEMATOMAS RISK: ADVANCED AGE ( 83)( H & P) PONDER HX OF HTN ( H & P) PONDER DX OF BILATERAL SUBDURAL HEMATOMAS ( H & P) PONDER TREATMENTS: BRAIN CT NEURO SURGERY CONSULT JOE HOLE PROCEDURE/EVACUATION OF HEMATOMA AND PLACEMENT OF DRAIN 03/05 THANK YOU! CARLOS (This form is maintained as a part of the permanent medical record) 2014 [employer]. All Rights Reserved KINGSLEY [email or web address] [phone] MTDD
[2019-03-06] MEDS: Atorvastatin Calcium 40 MG TAB PO SCH (21:50)
[2019-03-07] MEDS: hydrALAZINE 20 MG/ML VIAL SLOW IVP PRN (00:32)
[2019-03-07] MEDS: Sodium Chloride 0.9% 1,000 ML IV SCH ×2 (07:00→18:13)
--- NOTE | 2019-03-07 09:36 | PRG ---
DATE OF SERVICE: 03/07/2019 I met with Ms. Hernandez in her room. She is status post 2 days of bilateral drainage of subdural hematoma. Her incisions are well approximated. She is in her room, resting comfortably early this morning when I met with her. Per report yesterday, she was alert and interactive. Today, she opens her eyes and answers simple questions. The plan will be ongoing physical therapy and occupational therapy. She was in a rehab setting shortly before admission on this occasion. She will likely need rehab or jail facility when she leaves. After discharge to rehab, we will evaluate her in the outpatient setting approximately 2 weeks from now with repeat CT scan. Job ID: [id number] MTDD
[2019-03-07] MEDS: predniSONE 5 MG TAB PO SCH (09:43)
[2019-03-07] MEDS: Amlodipine 5 MG TAB PO SCH ×2 (09:43→20:58)
[2019-03-07] MEDS: Escitalopram Oxalate 10 mg Tablet PO SCH (09:43)
[2019-03-07] MEDS: Docusate 100 MG CAP PO PRN (09:43)
[2019-03-07] MEDS: Bisoprolol Fumarate 5 MG TAB PO SCH (09:44)
[2019-03-07] MEDS: Atorvastatin Calcium 40 MG TAB PO SCH (20:58)
[2019-03-08] MEDS: Amlodipine 5 MG TAB PO SCH (08:44)
[2019-03-08] MEDS: predniSONE 5 MG TAB PO SCH (08:44)
[2019-03-08] MEDS: Escitalopram Oxalate 10 mg Tablet PO SCH (08:44)
[2019-03-08] MEDS: Bisoprolol Fumarate 5 MG TAB PO SCH (08:44)
[2019-03-08 11:11] VITALS: BP 136/77; TEMP 97.5
--- NOTE | 2019-03-08 15:08 | EKG ---
Test Reason : DIZZY Blood Pressure : / mmHG Vent. Rate : 066 BPM Atrial Rate : 066 BPM P-R Int : 164 ms QRS Dur : 090 ms QT Int : 426 ms P-R-T Axes : 083 -21 028 degrees QTc Int : 446 ms Normal sinus rhythm Inferior infarct , age undetermined Abnormal ECG Confirmed by MILAGROS GODINEZ ([id number]), managing editor ALMA ULRICH ([id number]) on 03/08/2019 3:08:23 PM Referred By: Confirmed By:MILAGROS GODINEZ
== END 2019-03-08 11:55 | DRG 25 ==
LOC: ERS 13:44 → 2SE 16:30 → CCU 03-05 08:05 → SJJU 03-06 11:39
PROVIDERS: ADMIT Neurological Surgery; ATTEND Neurological Surgery
PROC: 009430Z Drainage of Intracranial Subdural Space with Drainage Device, Percutaneous Approach (ICD-10-PCS; principal; 2019-03-05)
DX: I62.00 Nontraumatic subdural hemorrhage, unspecified (principal); G93.5 Compression of brain; I10 Essential (primary) hypertension; I25.10 Atherosclerotic heart disease of native coronary artery without angina pectoris; E78.5 Hyperlipidemia, unspecified; F07.81 Postconcussional syndrome; L40.50 Arthropathic psoriasis, unspecified; Z90.49 Acquired absence of other specified parts of digestive tract; Z90.710 Acquired absence of both cervix and uterus; Z88.6 Allergy status to analgesic agent; Z88.8 Allergy status to other drugs, medicaments and biological substances; Z79.899 Other long term (current) drug therapy
CPT/HCPCS: 36415; 70450; 80048; 80053; 83605; 83690; 84484; 85025; 85610; 85730; 93005; J0360; J0670; J0690; J2001; J3010; J7512; S0028

== ENCOUNTER 2019-03-12 13:56 | Outpatient (CLI) | payer MEDICARE ==
--- NOTE | 2019-03-12 16:17 | CT ---
HEAD CT WITHOUT CONTRAST: 03/12/19 COMPARISON: 03/04/19. HISTORY: Bilateral subdural hematoma. Follow-up exam. FINDINGS: Interval placement of bilateral frontal calvarial ana hole defect. Persistent extra-axial hematoma a long both frontal convexities. The degree of extra-axial blood has slightly increased on the left, cu rrently measuring 1.9 cm (previously measuring 1.5 cm). There I also evidence of pneumocephalus, left greater than right. There is approximately 4.6 mm of left to right subfalcine herniation due to extr a-axial blood and more so the degree of pneumocephalus. No evidence of hydrocephalus. Indeterminate hypodensity in the sony (axial image #8. Stable volume lo ss in the left cerebellar hemisphere. There is mucosa disease involving posterior ethmoid air cells and the sphenoid sinus. IMPRESSION: 1. Persistent subdural hematomas with slight increase along the left frontal convexity. 2. Pneumocephalus, left greater than right. There is left to right subfalcine herniation. 3. Results of the study discussed with Dr. Matthew, 03/12/19 at 2:11 p.m. Code CR POS: OFF
== END 2019-03-12 13:57 | disposition home or self-care (01) ==
LOC: CT 13:56
PROVIDERS: ATTEND Surgery
DX: S06.5X9A Traumatic subdural hemorrhage with loss of consciousness of unspecified duration, initial encounter (principal); G93.89 Other specified disorders of brain
CPT/HCPCS: 70450

== ENCOUNTER 2019-03-12 14:54 | Inpatient (IN) | payer MEDICARE ==
[2019-03-12] MEDS ORDERED: Ondansetron PF 4 MG/2 ML Vial ONE (15:35)
--- NOTE | 2019-03-12 15:58 | RAD ---
XR Chest 1 View Portable HISTORY: Altered mental status COMPARISON: 02/05/2019 FINDINGS: The heart size is stable. The aorta is tortuous. Surgical clips in the left upper medial ch est are again seen. The lungs are well expanded without focal areas of consolidation, pneumothorax or pleural effusions. IMPRESSION: No radiographic evidence of acute cardiopulmonary process.
[2019-03-12 16:08] LABS: #Lymphocytes 0.6 thou/uL (1.20-3.40); #Monocytes 0.4 thou/uL (0.11-0.59); %Eosinophils 0.4 % (0.0-10.0); %Lymphocytes 14.4 % (21.0-51.0); %Neutrophils 75.2 % (42.0-75.0); Hemoglobin 11.9 g/dL (12.0-16.0); Mean Corpuscular HGB CONC 32.2 g/dL (32.0-36.0); Mean Corpuscular Hemoglobin 29.4 pg (27.0-31.0); Mean Corpuscular Volume 91.1 fL (78.0-98.0); Mean Platelet Volume 7.1 fL (7.4-10.4); Platelet Count 175 thou/uL (130-400); RBC Distribution Width 15.8 % (11.5-14.5); Red Blood Cell (RBC) Count 4.03 mill/uL (4.20-5.40)
[2019-03-12 16:26] LABS: ALT (SGPT) 16 U/L (8-55); AST (SGOT) 17 U/L (5-34); Albumin 3.4 g/dL (3.4-4.8); Alkaline Phosphatase 71 U/L (40-150); Anion Gap 13 mmol/L (10-20); BUN (Urea Nitrogen) 8 mg/dL (9.8-20.1); Bilirubin, Total 0.8 mg/dL (0.2-1.2); Calc. Creatinine Clearance 0 mL/min (70-130); Calcium 9.1 mg/dL (7.8-10.44); Carbon Dioxide 30 mmol/L (23-31); Chloride 104 mmol/L (98-107); Estimated GFR-MDRD 74; Globulin 2.5 g/dL (2.4-3.5); Glucose 138 mg/dL (83-110); Potassium 3.8 mmol/L (3.5-5.1); Protein, Total 5.9 g/dL (6.0-8.3); Sodium 143 mmol/L (136-145)
[2019-03-12 16:50] LABS: Bilirubin Negative (Negative); Blood, Urine Negative (Negative); Clarity CLOUDY (Clear); Glucose, Urine (Dipstick) Negative (Negative); Leukocyte Trace (Negative); Nitrite Positive (Negative); Protein, Urine (Dipstick) Trace mg/dL (Neg-Trace)
[2019-03-12 16:51] LABS: Bacteria/HPF 1+ HPF (None Seen); Hyaline Casts/LPF 0-3 HYALINE CAST LPF (0-3 Hyaline); Pathc Cast-AUWi Flag 0.13 (0-2.49); RBC/HPF 0-3 HPF (0-3); Squamous Epithelial 0-3 HPF (0-3); WBC/HPF 0-3 HPF (0-3)
[2019-03-12] MEDS ORDERED: Bisacodyl 5 MG TAB PO PRN (19:50)
[2019-03-12] MEDS ORDERED: Senokot S 8.6-50 MG TAB PO PRN (19:50)
[2019-03-12] MEDS ORDERED: Acetaminophen 325 MG TAB PO PRN (19:50)
[2019-03-12] MEDS ORDERED: Promethazine HCl 25 MG/ML VIAL IVPB PRN (19:59)
--- NOTE | 2019-03-13 08:26 | HP ---
This is Marcos Sanz PA-C dictating a report for Antione Matthew MD. This is a 30-minute initial patient evaluation in which greater than 50% of the exam was spent in counseling and coordinating the patient's care. Remainder of the exam was spent in review of patient's medical records and formulation of treatment plan and review of appropriate imaging studies. CHIEF COMPLAINT: Nausea and vomiting with some balance difficulties for the past 1 week. HISTORY OF PRESENT ILLNESS: Ms. Hernandez is a pleasant 83-year-old female who presents to [facility] for the above complaints. According to the patient's daughters who are at bedside to provide the majority of the history, the patient was at [facility] and today had very significant nausea and vomiting with dizziness anytime she attempted to move her head forward or sit up more than 60 degrees in bed. She attempted to walk with therapies or sit in a chair and work with occupational therapy, but again dizziness and vomiting prohibited to this. This prompted a head CT ordered by inpatient rehabilitation physician and the head CT reveals reaccumulation of bilateral chronic subdural hematomas with a component of compressive pneumocephalus on the left. The patient's daughter states that she may be having headaches, but it is unclear, she does not communicate this. She is rather delirious and confused, although according to the patient's daughters, this has become a little bit worse over the past several hours. By report, the patient has been off blood thinners. PHYSICAL EXAMINATION: NEURO: The patient is awake and alert. She is very nonsensical in her one words with most of her wording. However, she is able to focus occasionally. She intermittently follows commands, but is able to move all extremities equally and spontaneously. She is not oriented. She is oriented to person, but not place or time. She is, however, able to correctly identify a ballpoint pen, but is unable to tell me what that purpose is. Pupils are equal, round, and reactive bilaterally. She does not appear to be in any pain. She has an oxygen face mask that she wears on her forehead or on her ear as she does not like this over her face. GCS is E4 V4 M6, so she is a GCS of 14. IMPRESSION AND DIAGNOSES: 1. Status post bilateral frontal ana hole placement on 03/04/[address] Farah. 2. Recurrent nausea, vomiting, and dizziness with reaccumulation of the bilateral subdural hematoma and compressive pneumocephalus on repeat head CT. 3. Altered mental status with confusion. PLAN: At this time, I have discussed the patient's case and imaging with Dr. Matthew. At this time, the patient appears to be neurologically stable. Given her reaccumulation of subdural fluid collection and some tension pneumocephalus, we plan to take her to the OR tomorrow for reexploration of bilateral frontal ana holes as well as placement of bilateral parietal region ana holes for evacuation of subdural hematoma and all indicated procedures. I ideally would like the patient to stay as flat as she can, but her head of bed may be raised up to 15 degrees. I would like her to remain on supplemental oxygen until surgery. I would like her to be n.p.o. given her high aspiration pneumonia risk given significant nausea, vomiting, and dizziness. Her systolic blood pressure would be less than 150. I have updated the patient's daughters of our surgical plan tomorrow and they were appreciative of the care. Certainly should the patient's neurologic status decline before or in the next few hours, which I highly expect it will not, we will plan to go to the room sooner. However, repeat head CT will be obtained at that time. Again, we will repeat head CT tomorrow morning to get another baseline CT prior to surgery. Please call with any changes in patient's neurologic status. Job ID: [id number]
[2019-03-13] MEDS ORDERED: Vancomycin HCl 1 GM in Premix Bag 1 BAG IVPB SCH (09:45)
[2019-03-13] MEDS: Atorvastatin Calcium 40 MG TAB PO SCH ×2 (10:15→20:19)
[2019-03-13] MEDS: Bisoprolol Fumarate 5 MG TAB PO SCH (10:15)
[2019-03-13] MEDS: Amlodipine 5 MG TAB PO SCH ×2 (10:15→20:19)
[2019-03-13] MEDS: Sodium Chloride 0.9% 1,000 ML IV SCH ×2 (10:15→10:59)
[2019-03-13] MEDS: Escitalopram Oxalate 10 mg Tablet PO SCH (10:16)
[2019-03-13] MEDS: Vancomycin HCl 750 MG in Sodium Chloride 0.9% 250 ML 250 ML IVPB SCH ×3 (10:16→21:57)
[2019-03-13] MEDS: Pantoprazole 40 MG VIAL IVP SCH ×2 (10:16→10:47)
--- NOTE | 2019-03-13 10:21 | CT ---
CT brain noncontrast: 03/13/2019 at 4:07 AM HISTORY: Follow-up bilateral subdural hematomas in 83-year-old female. [facility]ire [facility] network was down. Dr. Acuna gave preliminary verbal report of no interval ch elissa. The system is back up now, and is being submitted for dictation approximately 10:00 AM on 03/13/2019 COMPARISON: 03/12/2019 at 2:03 PM FINDINGS: Bilateral intermediate density subdural hematomas, left greater than right, no significant interval c hange. Transverse diameter of left subdural collection measured at same level as prior shows approximately 1.9 cm. Bilateral subdural air, left greater than right, minimal decrease in size. Mass effect upon bilateral cerebral hemispheres. Mild left to right midline shift of the septum pellu cidum remains 0.4 cm at the same level previously measured. Maximum degree is 0.57 m at anterior aspect of septum pellucidum. No interval change. Again noted are the bifrontal ana holes and adjacent scalp skin shellie. No uncal, transtentorial, or tonsillar herniation. No acute intra-axial hemorrhage.. IMPRESSION: 1) no major interval change overall. 2) bilateral subacute subdural hematomas. No significant interval change. 3) bilateral pneumocephalus, minimal improvement. 3) mass effect and doie-qt-tudls subfalcine herniation, unchanged.
--- NOTE | 2019-03-13 14:08 | PRG ---
DATE OF SERVICE: 03/13/2019 SUBJECTIVE: Ms. Hernandez is known to me. She was admitted for intracranial multicompartmental bleed after a dizzy spell and subsequent vomiting, which led to head injury. This was followed and the patient has essentially been in the hospital according to the family for the last 40 days or so. Every time she is going to inpatient rehab and has been placed upright, she has vomited. She likely has Meniere disease or some form of labyrinthitis. However, review of her head CT demonstrates reaccumulation of her subdural hematoma coupled with pneumocephalus that does appear to be under some pressure. The patient on exam is very slowed in a psychomotor fashion. She will sometimes answer questions appropriately and other times, simply just stare. The family feels as if she has had essentially a failure to thrive and again after returning from rehab to the ER yesterday for vomiting and increased headache, the family felt it was a lack of movement on the left side. She appears to be marginally improved today, but remains with the aforementioned issues. She will follow commands, but again is delayed on the left side and even following of the commands is not repetitive. She endorses headache. Her wounds are healing well. At this point, I discussed with the family we could either start to wait to see if the patient starts to clear this or we could take her back and perhaps add ana holes posteriorly as well and perhaps a more prolonged duration of the red rubber drain placement. They would like us to proceed with surgery and I certainly think it is reasonable. As such, please do informed consent for bilateral reopening of frontal ana holes and creation of parietal ana holes and placement of subdural drain. Job ID: [id number]
[2019-03-13] MEDS ORDERED: Bacitracin Zinc Ointment 30 gm TUBE ONE (14:26)
[2019-03-13] MEDS ORDERED: Thrombin 5000 UNITS/5 ML VIAL ONE (14:27)
[2019-03-13] MEDS ORDERED: Lidocaine 0.5%/Epinephrine 1:200,000 50 ml Vial ONE (14:27)
[2019-03-13] MEDS ORDERED: Sodium Chloride 0.9% 10 ML ONE (14:27)
[2019-03-13] MEDS ORDERED: Fentanyl 100 MCG/2 ML VIAL ONE (14:29)
[2019-03-13] MEDS: hydrALAZINE 20 MG/ML VIAL SLOW IVP PRN (14:40)
[2019-03-13] MEDS ORDERED: levETIRAcetam 500 MG/100 ML PREMIX BAG ONE (15:32)
[2019-03-13] MEDS ORDERED: levETIRAcetam 1000 MG/100 ML PREMIX BAG ONE (15:33)
[2019-03-13] MEDS ORDERED: Glycopyrrolate 0.2 MG/ML 5 ML SYRINGE ONE (16:27)
[2019-03-13] MEDS ORDERED: Rocuronium Bromide 10 MG/ML (10ML VIAL) ONE (16:27)
[2019-03-13] MEDS ORDERED: Lidocaine 1% PF 5 ML VIAL ONE (16:27)
[2019-03-13] MEDS ORDERED: PROPOFOL 200 MG/20 ML VIAL ONE (16:27)
--- NOTE | 2019-03-13 16:41 | PDOC.PN ---
- Subjective Encounter Start Date: 03/13/19 Encounter Start Time: 09:30 Patient seen and examined for med mngt. Admitted from Inpt Rehab for gen weaknesss/N/V. No CP/SOB. History limited due to current mentation. - Objective Resuscitation Status - Order Detail: 03/12/19 19:50 Resuscitation Status Routine Co-Sign Provider: Resuscitation Status: FULL: Full Resuscitation MAR Reviewed: Yes Vital Signs & Weight: Vital Signs (12 hours) Temp Pulse BP Pulse Ox 03/13/19 14:40 58 L 167/83 H 03/13/19 12:00 98.5 F 100 Weight Weight 159 lb 13.362 oz Most Recent Monitor Data Heart Rate from ECG 59 NIBP 163/64 NIBP BP-Mean 97 Respiration from ECG 17 SpO2 100 I&O: 03/12/19 03/13/19 03/14/19 06:59 06:59 06:59 Intake Total 250 Output Total 50 Balance 200 Result Diagrams: 03/13/19 17:48 03/14/19 07:00 Radiology Reviewed by me: Yes (CT brain - reviewed) EKG Reviewed by me: Yes (SR) Phys Exam - Physical Examination Constitutional: NAD Respiratory: no wheezing, no rales, no rhonchi no accessory muscle use Cardiovascular: RRR, no rub no heaves/pulsations Gastrointestinal: soft, non-tender, no distention, positive bowel sounds Musculoskeletal: no edema, pulses present Neuro/Psych - cannot assess due to current mentation Was awake during PT earlier today Dx/Plan - Plan plan discussed w/ family (daughter Ruth - SHERINE), DVT proph w/SCDs IMPRESSION: Gen weakness HTN Enterococcus UTI CAD - declined CABG DM2 Recurrent falls Chronic headaches 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 Depression - mild - stable PLAN: IV Vancomycin for UTI - await sensitivities Monitor Vancomycin level Cont Bisoprolol Cont Amlodipine Resume Prednisone when ok with Neurosurgery Cont Statins Plan d/w daughter Review of Systems - Review of Systems Respiratory: negative: Cough, Dry, Shortness of Breath, Hemoptysis, SOB with Excertion, Pleuritic Pain, Sputum, Wheezing Cardiovascular: negative: chest pain, palpitations, orthopnea, paroxysmal nocturnal dyspnea, edema, light headedness, other - Medications/Allergies Allergies/Adverse Reactions: Allergies Allergy/AdvReac Type Severity Reaction Status Date / Time hydrocodone Allergy Verified 02/05/19 18:00 lisinopril Allergy Verified 02/05/19 18:00 losartan Allergy Verified 02/05/19 18:00 Medications: Current Medications Acetaminophen (Tylenol) 650 mg PO Q4H PRN PRN Reason: Headache/Fever/Mild Pain (1-3) Amlodipine Besylate (Norvasc) 2.5 mg PO BID [facility] Last Admin: 03/13/19 10:15 Dose: Not Given Atorvastatin Calcium (Lipitor) 40 mg PO QPM [facility] Last Admin: 03/13/19 10:15 Dose: Not Given Bisacodyl (Dulcolax) 10 mg PO DAILYPRN PRN PRN Reason: Constipation Bisoprolol Fumarate (Zebeta) 5 mg PO DAILY [facility] Last Admin: 03/13/19 10:15 Dose: Not Given Escitalopram Oxalate (Lexapro) 5 mg PO DAILY [facility] Last Admin: 03/13/19 10:16 Dose: Not Given Hydralazine HCl (Apresoline) 10 mg SLOW IVP Q15MIN PRN PRN Reason: SBP greater than 150 Last Admin: 03/13/19 14:40 Dose: 10 mg Sodium Chloride (Normal Saline 0.9%) 1,000 mls @ 50 mls/hr IV .Q20H [facility] Last Admin: 03/13/19 10:59 Dose: 1,000 mls Vancomycin HCl 750 mg/ Sodium (Chloride) 250 mls @ 250 mls/hr IVPB 1000,2200 [facility] Last Admin: 03/13/19 10:44 Dose: 250 mls Miscellaneous Medication (Pharmacy To Dose) 1 each IVPB PRN PRN PRN Reason: Pharmacy to dose Nystatin (Mycostatin Powder) 0 gm TOP TID [facility] Pantoprazole Sodium (Protonix) 40 mg IVP DAILY [facility] Last Admin: 03/13/19 10:47 Dose: 40 mg Promethazine HCl (Phenergan) 12.5 mg IVPB Q6H PRN PRN Reason: Nausea/Vomiting Senna/Docusate Sodium (Senokot S) 2 tab PO BID PRN PRN Reason: Constipation Sodium Chloride (Flush - Normal Saline) 10 ml IVF PRN PRN PRN Reason: Saline Flush
[2019-03-13] MEDS: Nystatin Powder 15 GM BOT TOP SCH ×2 (16:45→22:05)
[2019-03-13 18:03] LABS: #Lymphocytes 0.6 thou/uL (1.20-3.40); #Monocytes 0.7 thou/uL (0.11-0.59); #Neutrophils 5.5 thou/uL (1.40-6.50); %Basophils 0.2 % (0.0-1.0); %Eosinophils 0.5 % (0.0-10.0); %Lymphocytes 9.1 % (21.0-51.0); %Neutrophils 80.1 % (42.0-75.0); Hemoglobin 12.4 g/dL (12.0-16.0); Mean Corpuscular HGB CONC 31.3 g/dL (32.0-36.0); Mean Corpuscular Hemoglobin 29.4 pg (27.0-31.0); Mean Corpuscular Volume 94.1 fL (78.0-98.0); Mean Platelet Volume 7.3 fL (7.4-10.4); Platelet Count 189 thou/uL (130-400); Red Blood Cell (RBC) Count 4.22 mill/uL (4.20-5.40); White Blood Cell (WBC) Count 6.8 thou/uL (4.8-10.8)
[2019-03-13 18:09] LABS: Anion Gap 15 mmol/L (10-20); BUN (Urea Nitrogen) 8 mg/dL (9.8-20.1); Calc. Creatinine Clearance 74 mL/min (70-130); Calcium 8.8 mg/dL (7.8-10.44); Carbon Dioxide 24 mmol/L (23-31); Chloride 107 mmol/L (98-107); Estimated GFR-MDRD 86; Glucose 129 mg/dL (83-110); Potassium 3.5 mmol/L (3.5-5.1); Sodium 142 mmol/L (136-145)
[2019-03-13] MEDS: CEFAZOLIN 2 GM in Premix Bag 1 BAG IVPB SCH (20:41)
[2019-03-13] MEDS ORDERED: Nystatin Powder 15 GM BOT TOP SCH (21:00)
[2019-03-14] MEDS: hydrALAZINE 20 MG/ML VIAL SLOW IVP PRN ×2 (00:53→03:16)
[2019-03-14] MEDS: CEFAZOLIN 2 GM in Premix Bag 1 BAG IVPB SCH ×3 (02:20→18:28)
--- NOTE | 2019-03-14 07:02 | CT ---
CT HEAD WITHOUT CONTRAST: INDICATIONS: Intracranial hemorrhage. Followup. Postoperative evacuation. COMPARISON: Exam from the previous day. FINDINGS: There are bilateral subdural drains in place, intervally positioned since comparison exam. There rem ains air and predominantly low density fluid overlying each cerebral convexity, which has decreased i n volume, with a maximum thickness of left-sided subdural fluid 11 mm and a maximum thickness of righ t-sided subdural fluid 7 mm. The thickness of the extraaxial air has mildly decreased on the left. The volume of extraaxial postoperative air overlying the anterior right convexity has increased in vo lume, mildly. The ventricular system is grossly stable in size. Persistent rightward subfalcine her niation is present, approximately 6 mm at the level of the septum pellucidum. IMPRESSION: Interval placement of bilateral subdural drains, with a decreased volume of extraaxial fluid, bilater ally. POS: PRUDENCIO
[2019-03-14] MEDS: Pantoprazole 40 MG VIAL IVP SCH (08:44)
[2019-03-14] MEDS: Bisoprolol Fumarate 5 MG TAB PO SCH (09:14)
[2019-03-14] MEDS: Escitalopram Oxalate 10 mg Tablet PO SCH (09:14)
[2019-03-14] MEDS: Amlodipine 5 MG TAB PO SCH ×2 (09:14→21:14)
[2019-03-14] MEDS: Nystatin Powder 15 GM BOT TOP SCH ×3 (09:16→21:15)
[2019-03-14] MEDS: Vancomycin HCl 750 MG in Sodium Chloride 0.9% 250 ML 250 ML IVPB SCH ×2 (09:32→22:36)
[2019-03-14 12:05] LABS: Anion Gap 14 mmol/L (10-20); BUN (Urea Nitrogen) 7 mg/dL (9.8-20.1); Calc. Creatinine Clearance 70 mL/min (70-130); Carbon Dioxide 22 mmol/L (23-31); Chloride 105 mmol/L (98-107); Estimated GFR-MDRD Greater than 90; Glucose 85 mg/dL (83-110); Potassium 3.9 mmol/L (3.5-5.1); Sodium 137 mmol/L (136-145)
[2019-03-14] MEDS: Acetaminophen 650 MG in Premix Bag 1 BAG IVPB SCH ×2 (12:56→18:28)
[2019-03-14] MEDS: Sodium Chloride 0.9% 1,000 ML IV SCH (19:45)
--- NOTE | 2019-03-14 19:50 | PDOC.PN ---
- Subjective Encounter Start Date: 03/14/19 Encounter Start Time: 11:30 Patient seen and examined for med mngt. Participated with PT earlier today. Drowsy - slow to respond now. No new complaints. No overnight events - Objective Resuscitation Status - Order Detail: 03/12/19 19:50 Resuscitation Status Routine Co-Sign Provider: Resuscitation Status: FULL: Full Resuscitation MAR Reviewed: Yes Vital Signs & Weight: Vital Signs (12 hours) Temp Pulse Pulse Pulse Pulse BP BP 03/14/19 16:00 98.1 F 03/14/19 12:00 98.2 F 03/14/19 11:21 67 78 76 153/61 H 03/14/19 11:20 67 78 82 153/61 H 03/14/19 09:14 76 159/65 H 03/14/19 08:00 98.4 F BP BP Pulse Ox Pulse Ox Pulse Ox 03/14/19 16:00 98 03/14/19 12:00 03/14/19 11:21 158/72 H 114/71 98 96 03/14/19 11:20 158/72 H 114/71 98 96 03/14/19 09:14 03/14/19 08:00 100 Weight Weight 139 lb 15.896 oz Most Recent Monitor Data Heart Rate from ECG 63 NIBP 119/51 NIBP BP-Mean 73 Respiration from ECG 18 SpO2 98 I&O: 03/13/19 03/14/19 03/15/19 06:59 06:59 06:59 Intake Total 1827 1237 Output Total 360 210 Balance 1467 1027 Result Diagrams: 03/13/19 17:48 03/14/19 07:00 EKG Reviewed by me: Yes (Tele SR) Phys Exam - Physical Examination Constitutional: NAD Respiratory: no wheezing, no rhonchi Cardiovascular: RRR, no rub Gastrointestinal: soft, non-tender, positive bowel sounds Musculoskeletal: no edema Neurological: moves all 4 limbs Dx/Plan - Plan DVT proph w/SCDs IMPRESSION: Gen weakness with encephalopathy HTN Enterococcus UTI CAD - declined CABG DM2 - diet controlled Recurrent falls Chronic headaches 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 Depression - mild - stable PLAN: Cont IV Vancomycin for UTI - await sensitivities Cont Bisoprolol/Amlodipine/Statins Resume Prednisone when ok with Neurosurgery Full code DPOA - daughter Review of Systems - Review of Systems Respiratory: negative: Cough, Dry, Shortness of Breath, Hemoptysis, SOB with Excertion, Pleuritic Pain, Sputum, Wheezing Cardiovascular: negative: chest pain, palpitations, orthopnea, paroxysmal nocturnal dyspnea, edema, light headedness, other - Medications/Allergies Allergies/Adverse Reactions: Allergies Allergy/AdvReac Type Severity Reaction Status Date / Time hydrocodone Allergy Verified 02/05/19 18:00 lisinopril Allergy Verified 02/05/19 18:00 losartan Allergy Verified 02/05/19 18:00 Medications: Current Medications Acetaminophen (Tylenol) 650 mg PO Q4H PRN PRN Reason: Headache/Fever/Mild Pain (1-3) Amlodipine Besylate (Norvasc) 2.5 mg PO BID [facility] Last Admin: 03/14/19 09:14 Dose: Not Given Atorvastatin Calcium (Lipitor) 40 mg PO QPM [facility] Last Admin: 03/13/19 20:19 Dose: Not Given Bisacodyl (Dulcolax) 10 mg PO DAILYPRN PRN PRN Reason: Constipation Bisoprolol Fumarate (Zebeta) 5 mg PO DAILY [facility] Last Admin: 03/14/19 09:14 Dose: Not Given Escitalopram Oxalate (Lexapro) 5 mg PO DAILY [facility] Last Admin: 03/14/19 09:14 Dose: Not Given Hydralazine HCl (Apresoline) 10 mg SLOW IVP Q15MIN PRN PRN Reason: SBP greater than 150 Last Admin: 03/14/19 03:16 Dose: 10 mg Sodium Chloride (Normal Saline 0.9%) 1,000 mls @ 50 mls/hr IV .Q20H [facility] Last Admin: 03/13/19 10:59 Dose: 1,000 mls Vancomycin HCl 750 mg/ Sodium (Chloride) 250 mls @ 250 mls/hr IVPB 1000,2200 [facility] Last Admin: 03/14/19 09:32 Dose: 250 mls Cefazolin Sodium/Dextrose 2 gm (/ Device) 50 mls @ 100 mls/hr IVPB 0300,1100, 1900 [facility] Last Admin: 03/14/19 18:28 Dose: 50 mls Levetiracetam 500 mg/ Device 100 mls @ 200 mls/hr IVPB BID [facility] Last Admin: 03/14/19 09:15 Dose: 100 mls Acetaminophen 650 mg/ Device 65 mls @ 400 mls/hr IVPB Q6HR [facility] Stop: 03/15/19 06:10 Last Admin: 03/14/19 18:28 Dose: 65 mls Miscellaneous Medication (Pharmacy To Dose) 1 each IVPB PRN PRN PRN Reason: Pharmacy to dose Nystatin (Mycostatin Powder) 0 gm TOP TID [facility] Last Admin: 03/14/19 09:16 Dose: 1 applic Pantoprazole Sodium (Protonix) 40 mg IVP DAILY [facility] Last Admin: 03/14/19 08:44 Dose: 40 mg Promethazine HCl (Phenergan) 12.5 mg IVPB Q6H PRN PRN Reason: Nausea/Vomiting Senna/Docusate Sodium (Senokot S) 2 tab PO BID PRN PRN Reason: Constipation Sodium Chloride (Flush - Normal Saline) 10 ml IVF PRN PRN PRN Reason: Saline Flush
[2019-03-14] MEDS: Atorvastatin Calcium 40 MG TAB PO SCH (21:14)
[2019-03-15] MEDS: Acetaminophen 650 MG in Premix Bag 1 BAG IVPB SCH ×2 (00:49→06:02)
[2019-03-15] MEDS: CEFAZOLIN 2 GM in Premix Bag 1 BAG IVPB SCH ×3 (02:35→19:14)
[2019-03-15] MEDS: Sodium Chloride 0.9% 1,000 ML IV SCH (08:39)
[2019-03-15] MEDS: Nystatin Powder 15 GM BOT TOP SCH ×3 (08:40→21:13)
[2019-03-15 09:07] LABS: #Eosinphils 0.1 thou/uL (0.0-0.7); #Lymphocytes 0.6 thou/uL (1.20-3.40); #Monocytes 0.5 thou/uL (0.11-0.59); #Neutrophils 2.4 thou/uL (1.40-6.50); %Basophils 0.4 % (0.0-1.0); %Eosinophils 1.7 % (0.0-10.0); %Monocytes 13.8 % (0.0-10.0); %Neutrophils 68.2 % (42.0-75.0); Hemoglobin 10.4 g/dL (12.0-16.0); Mean Corpuscular HGB CONC 32.3 g/dL (32.0-36.0); Mean Corpuscular Hemoglobin 29.8 pg (27.0-31.0); Mean Corpuscular Volume 92.3 fL (78.0-98.0); Platelet Count 154 thou/uL (130-400); RBC Distribution Width 15.7 % (11.5-14.5); White Blood Cell (WBC) Count 3.6 thou/uL (4.8-10.8)
[2019-03-15 09:24] LABS: Vancomycin, Trough 13.9 ug/mL
[2019-03-15 09:25] LABS: Anion Gap 12 mmol/L (10-20); BUN (Urea Nitrogen) 8 mg/dL (9.8-20.1); Calc. Creatinine Clearance 70 mL/min (70-130); Calcium 8.2 mg/dL (7.8-10.44); Carbon Dioxide 21 mmol/L (23-31); Chloride 108 mmol/L (98-107); Estimated GFR-MDRD Greater than 90; Glucose 63 mg/dL (83-110); Potassium 3.3 mmol/L (3.5-5.1); Sodium 138 mmol/L (136-145)
[2019-03-15] MEDS: Escitalopram Oxalate 10 mg Tablet PO SCH (10:51)
[2019-03-15] MEDS: Amlodipine 5 MG TAB PO SCH ×2 (10:52→21:13)
[2019-03-15] MEDS: Bisoprolol Fumarate 5 MG TAB PO SCH (10:54)
[2019-03-15] MEDS ORDERED: Vancomycin HCl 1 GM in Premix Bag 1 BAG IVPB SCH (11:00)
[2019-03-15] MEDS: Vancomycin HCl 750 MG in Sodium Chloride 0.9% 250 ML 250 ML IVPB SCH (11:07)
[2019-03-15] MEDS: D5 NS w/ 40 mEq KCl 1,000 ML IV SCH (11:36)
--- NOTE | 2019-03-15 15:02 | PDOC.PN ---
- Subjective Encounter Start Date: 03/15/19 Encounter Start Time: 14:00 Patient seen and examined for med mngt. No new complaints. Mentation improving. No fever/chills. No overnight events - Objective Resuscitation Status - Order Detail: 03/12/19 19:50 Resuscitation Status Routine Co-Sign Provider: Resuscitation Status: FULL: Full Resuscitation Vital Signs & Weight: Vital Signs (12 hours) Temp Pulse BP Pulse Ox 03/15/19 11:00 97.6 F 03/15/19 10:52 65 135/56 L 03/15/19 07:24 98 03/15/19 07:00 98.0 F 03/15/19 04:00 98.4 F Weight Weight 139 lb 15.896 oz Most Recent Monitor Data Heart Rate from ECG 61 NIBP 120/73 NIBP BP-Mean 88 Respiration from ECG 19 SpO2 97 I&O: 03/14/19 03/15/19 03/16/19 06:59 06:59 06:59 Intake Total 1827 2242 240 Output Total 360 410 150 Balance 1467 1832 90 Result Diagrams: 03/15/19 08:59 03/15/19 08:59 Additional Labs: Accuchecks 03/15/19 11:50 POC Glucose 123 H EKG Reviewed by me: Yes (Tele SR) Phys Exam - Physical Examination Constitutional: NAD Respiratory: no wheezing, no rhonchi Cardiovascular: RRR, no rub Gastrointestinal: soft, non-tender, positive bowel sounds Musculoskeletal: no edema Neurological: moves all 4 limbs Dx/Plan - Plan DVT proph w/SCDs IMPRESSION: Gen weakness with encephalopathy - improving HTN Hypokalemia Hypoglycemia Enterococcus UTI CAD - declined CABG DM2 - diet controlled Recurrent falls Chronic headaches 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 Depression - mild - stable PLAN: DC IV Vancomycin Start PO Macrobid Replace Potassium Change IVF to D5NS with Potassium due to hypoglycemia Cont other meds -Bisoprolol/Amlodipine/Statins Resume Prednisone when ok with Neurosurgery AM labs Review of Systems - Review of Systems Respiratory: negative: Cough, Dry, Shortness of Breath, Hemoptysis, SOB with Excertion, Pleuritic Pain, Sputum, Wheezing Cardiovascular: negative: chest pain, palpitations, orthopnea, paroxysmal nocturnal dyspnea, edema, light headedness, other Gastrointestinal: negative: Nausea, Vomiting, Abdominal Pain, Diarrhea, Constipation, Melena, Hematochezia, Other - Medications/Allergies Allergies/Adverse Reactions: Allergies Allergy/AdvReac Type Severity Reaction Status Date / Time hydrocodone Allergy Verified 02/05/19 18:00 lisinopril Allergy Verified 02/05/19 18:00 losartan Allergy Verified 02/05/19 18:00 Medications: Current Medications Acetaminophen (Tylenol) 650 mg PO Q4H PRN PRN Reason: Headache/Fever/Mild Pain (1-3) Amlodipine Besylate (Norvasc) 2.5 mg PO BID [facility] Last Admin: 03/15/19 10:52 Dose: 2.5 mg Atorvastatin Calcium (Lipitor) 40 mg PO QPM [facility] Last Admin: 03/14/19 21:14 Dose: Not Given Bisacodyl (Dulcolax) 10 mg PO DAILYPRN PRN PRN Reason: Constipation Bisoprolol Fumarate (Zebeta) 5 mg PO DAILY [facility] Last Admin: 03/15/19 10:54 Dose: 5 mg Escitalopram Oxalate (Lexapro) 5 mg PO DAILY [facility] Last Admin: 03/15/19 10:51 Dose: 5 mg Hydralazine HCl (Apresoline) 10 mg SLOW IVP Q15MIN PRN PRN Reason: SBP greater than 150 Last Admin: 03/14/19 03:16 Dose: 10 mg Cefazolin Sodium/Dextrose 2 gm (/ Device) 50 mls @ 100 mls/hr IVPB 0300,1100, 1900 [facility] Last Admin: 03/15/19 11:36 Dose: 50 mls Levetiracetam 500 mg/ Device 100 mls @ 200 mls/hr IVPB BID [facility] Last Admin: 03/15/19 08:40 Dose: 100 mls Potassium Chloride/Dextrose/Sod Cl (D5 Ns W/ 40 Meq Kcl) 1,000 mls @ 50 mls/hr IV .Q20H [facility] Last Admin: 03/15/19 11:36 Dose: 1,000 mls Nitrofurantoin Macrocrystals (Macrobid) 100 mg PO BID [facility] Nystatin (Mycostatin Powder) 0 gm TOP TID [facility] Last Admin: 03/15/19 14:45 Dose: 1 applic Pantoprazole Sodium (Protonix) 40 mg IVP DAILY [facility] Last Admin: 03/14/19 08:44 Dose: 40 mg Promethazine HCl (Phenergan) 12.5 mg IVPB Q6H PRN PRN Reason: Nausea/Vomiting Senna/Docusate Sodium (Senokot S) 2 tab PO BID PRN PRN Reason: Constipation Sodium Chloride (Flush - Normal Saline) 10 ml IVF PRN PRN PRN Reason: Saline Flush
--- NOTE | 2019-03-15 15:52 | CON ---
DATE OF CONSULTATION: 03/15/2019 The patient is seen and evaluated. I agreed with Kelly Villafana's evaluation on 03/15/2019. The patient continues to do extremely well. She is upright in the chair, alert and interactive. According to her family, this is the best that she has been since the onset of her symptoms. Given the recurrence of her subdural hematoma, we will leave the drains in 1 more day and plan to remove them tomorrow with transfer to the floor. Job ID: [id number]
[2019-03-15] MEDS ORDERED: Cipro 250 MG TAB PO SCH (20:00)
[2019-03-15] MEDS: Atorvastatin Calcium 40 MG TAB PO SCH (21:13)
[2019-03-15] MEDS: Nitrofurantoin Monohyd/M-Cryst 100 MG CAP PO SCH (21:13)
[2019-03-15] MEDS: hydrALAZINE 20 MG/ML VIAL SLOW IVP PRN (22:23)
[2019-03-16] MEDS: CEFAZOLIN 2 GM in Premix Bag 1 BAG IVPB SCH ×3 (02:27→19:55)
[2019-03-16 04:13] LABS: Anion Gap 10 mmol/L (10-20); BUN (Urea Nitrogen) 7 mg/dL (9.8-20.1); Calc. Creatinine Clearance 68 mL/min (70-130); Calcium 8.3 mg/dL (7.8-10.44); Carbon Dioxide 23 mmol/L (23-31); Chloride 107 mmol/L (98-107); Estimated GFR-MDRD Greater than 90; Glucose 111 mg/dL (83-110); Sodium 137 mmol/L (136-145)
[2019-03-16] MEDS: D5 NS w/ 40 mEq KCl 1,000 ML IV SCH (05:26)
--- NOTE | 2019-03-16 08:19 | PRG ---
DATE OF SERVICE: 03/16/2019 SUBJECTIVE: The patient is an 84-year-old female who is postoperative day #4 with three evacuation of bilateral chronic subdural hematoma with ana holes. She is significantly improved during her course here in the hospital. She is much more alert yesterday and today. She is able to tell me her name and her day. She is moving all 4s briskly and following commands. She appears quite strong throughout. Her MARIA ALEJANDRA drains output has decreased significantly, and last night, the right-sided drain had zero output and the left-sided drain only had 3 mL of output. PLAN: We will plan to remove her drains and transition the patient to the floor. I anticipate need for inpatient rehab at discharge. We will continue to mobilize and advance for diet during her stay in hospital. Job ID: [id number]
[2019-03-16] MEDS: Amlodipine 5 MG TAB PO SCH ×2 (09:38→19:56)
[2019-03-16] MEDS: Pantoprazole 40 MG VIAL IVP SCH (09:38)
[2019-03-16] MEDS: Escitalopram Oxalate 10 mg Tablet PO SCH (09:39)
[2019-03-16] MEDS: Nystatin Powder 15 GM BOT TOP SCH ×3 (09:40→19:57)
[2019-03-16] MEDS: Bisoprolol Fumarate 5 MG TAB PO SCH (11:19)
[2019-03-16] MEDS: Nitrofurantoin Monohyd/M-Cryst 100 MG CAP PO SCH ×2 (11:20→19:57)
[2019-03-16] MEDS: Scopolamine 1.5 mg/72 hour Patch TD SCH (12:20)
[2019-03-16] MEDS: Atorvastatin Calcium 40 MG TAB PO SCH (19:57)
--- NOTE | 2019-03-16 23:43 | PDOC.PN ---
- Subjective Encounter Start Date: 03/16/19 Encounter Start Time: 12:45 Patient seen and examined for med mngt. No seizure/headache reported. No new complaints. No overnight events - Objective Resuscitation Status - Order Detail: 03/16/19 16:48 Resuscitation Status Routine Resuscitation Status: DNAR: NO Resuscitation Discussed with: OOH-DNR in chart - RN verified with family MAR Reviewed: Yes Vital Signs & Weight: Vital Signs (12 hours) Temp Pulse BP Pulse Ox 03/16/19 20:00 98.2 F 99 03/16/19 19:56 67 135/74 03/16/19 16:00 97.6 F 03/16/19 12:00 98.5 F Weight Weight 139 lb 15.896 oz Most Recent Monitor Data Heart Rate from ECG 67 NIBP 139/58 NIBP BP-Mean 85 Respiration from ECG 19 SpO2 98 I&O: 03/15/19 03/16/19 03/17/19 06:59 06:59 06:59 Intake Total 2242 1985 1915 Output Total 410 150 6 Balance 1832 1835 1909 Result Diagrams: 03/17/19 08:42 03/17/19 08:42 Additional Labs: Accuchecks 03/16/19 03/15/19 06:44 23:48 POC Glucose 114 H 109 EKG Reviewed by me: Yes (Tele SR) Phys Exam - Physical Examination Constitutional: NAD Respiratory: no wheezing, no rhonchi Cardiovascular: RRR, no rub Gastrointestinal: soft, non-tender, positive bowel sounds Musculoskeletal: no edema Neurological: moves all 4 limbs Dx/Plan - Plan PT/OT, DVT proph w/SCDs IMPRESSION: Gen weakness with encephalopathy - improving HTN Hypokalemia - replaced Hypoglycemia - no new episodes Enterococcus UTI CAD - declined CABG DM2 - diet controlled Recurrent falls Chronic headaches 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 Depression - mild - stable PLAN: Cont PO Macrobid for UTI IVF dced Cont other meds -Bisoprolol/Amlodipine/Statins Resume Prednisone when ok with Neurosurgery DNR verified Review of Systems - Review of Systems Respiratory: negative: Cough, Dry, Shortness of Breath, Hemoptysis, SOB with Excertion, Pleuritic Pain, Sputum, Wheezing Cardiovascular: negative: chest pain, palpitations, orthopnea, paroxysmal nocturnal dyspnea, edema, light headedness, other Gastrointestinal: negative: Nausea, Vomiting, Abdominal Pain, Diarrhea, Constipation, Melena, Hematochezia, Other - Medications/Allergies Allergies/Adverse Reactions: Allergies Allergy/AdvReac Type Severity Reaction Status Date / Time hydrocodone Allergy Verified 02/05/19 18:00 lisinopril Allergy Verified 02/05/19 18:00 losartan Allergy Verified 02/05/19 18:00 Medications: Current Medications Acetaminophen (Tylenol) 650 mg PO Q4H PRN PRN Reason: Headache/Fever/Mild Pain (1-3) Last Admin: 03/16/19 11:21 Dose: 650 mg Amlodipine Besylate (Norvasc) 2.5 mg PO BID [facility] Last Admin: 03/16/19 19:56 Dose: 2.5 mg Atorvastatin Calcium (Lipitor) 40 mg PO QPM [facility] Last Admin: 03/16/19 19:57 Dose: 40 mg Bisacodyl (Dulcolax) 10 mg PO DAILYPRN PRN PRN Reason: Constipation Bisoprolol Fumarate (Zebeta) 5 mg PO DAILY [facility] Escitalopram Oxalate (Lexapro) 5 mg PO DAILY [facility] Last Admin: 03/16/19 09:39 Dose: 5 mg Hydralazine HCl (Apresoline) 10 mg SLOW IVP Q15MIN PRN PRN Reason: SBP greater than 150 Last Admin: 03/15/19 22:23 Dose: 10 mg Cefazolin Sodium/Dextrose 2 gm (/ Device) 50 mls @ 100 mls/hr IVPB 0300,1100, 1900 [facility] Last Admin: 03/16/19 19:55 Dose: 50 mls Levetiracetam 500 mg/ Device 100 mls @ 200 mls/hr IVPB BID [facility] Last Admin: 03/16/19 21:53 Dose: 100 mls Nitrofurantoin Macrocrystals (Macrobid) 100 mg PO BID [facility] Last Admin: 03/16/19 19:57 Dose: 100 mg Nystatin (Mycostatin Powder) 0 gm TOP TID [facility] Last Admin: 03/16/19 19:57 Dose: 1 applic Pantoprazole Sodium (Protonix) 40 mg IVP DAILY [facility] Last Admin: 03/16/19 09:38 Dose: 40 mg Promethazine HCl (Phenergan) 12.5 mg IVPB Q6H PRN PRN Reason: Nausea/Vomiting Scopolamine (Transderm Scop) 1.5 mg TD Q3D [facility] Last Admin: 03/16/19 12:20 Dose: 1.5 mg Senna/Docusate Sodium (Senokot S) 2 tab PO BID PRN PRN Reason: Constipation Sodium Chloride (Flush - Normal Saline) 10 ml IVF PRN PRN PRN Reason: Saline Flush
[2019-03-17] MEDS: CEFAZOLIN 2 GM in Premix Bag 1 BAG IVPB SCH (03:17)
[2019-03-17] MEDS: Nitrofurantoin Monohyd/M-Cryst 100 MG CAP PO SCH ×2 (08:53→20:57)
[2019-03-17] MEDS: Amlodipine 5 MG TAB PO SCH ×2 (08:53→20:58)
[2019-03-17] MEDS: Escitalopram Oxalate 10 mg Tablet PO SCH (08:53)
[2019-03-17] MEDS: Nystatin Powder 15 GM BOT TOP SCH ×3 (08:54→20:56)
[2019-03-17] MEDS: Bisoprolol Fumarate 5 MG TAB PO SCH (08:54)
[2019-03-17] MEDS: Pantoprazole 40 MG VIAL IVP SCH (08:54)
[2019-03-17 08:55] LABS: #Eosinphils 0.1 thou/uL (0.0-0.7); #Monocytes 0.4 thou/uL (0.11-0.59); #Neutrophils 2.3 thou/uL (1.40-6.50); %Basophils 0.6 % (0.0-1.0); %Eosinophils 2.8 % (0.0-10.0); %Lymphocytes 26.3 % (21.0-51.0); %Monocytes 9.8 % (0.0-10.0); %Neutrophils 60.5 % (42.0-75.0); Hemoglobin 11.6 g/dL (12.0-16.0); Mean Corpuscular Volume 90.6 fL (78.0-98.0); Mean Platelet Volume 7.3 fL (7.4-10.4); Platelet Count 180 thou/uL (130-400); RBC Distribution Width 15.9 % (11.5-14.5); Red Blood Cell (RBC) Count 4.02 mill/uL (4.20-5.40); White Blood Cell (WBC) Count 3.8 thou/uL (4.8-10.8)
[2019-03-17 09:11] LABS: Anion Gap 11 mmol/L (10-20); BUN (Urea Nitrogen) 4 mg/dL (9.8-20.1); Calc. Creatinine Clearance 72 mL/min (70-130); Carbon Dioxide 23 mmol/L (23-31); Chloride 110 mmol/L (98-107); Estimated GFR-MDRD Greater than 90; Glucose 113 mg/dL (83-110); Potassium 3.1 mmol/L (3.5-5.1); Sodium 141 mmol/L (136-145)
--- NOTE | 2019-03-17 10:40 | PRG ---
DATE OF SERVICE: 03/17/2019 This is Marcos Sanz PA-C dictating a report for Antione Matthew MD. This is a postoperative recheck. Ms. Hernandez is now postoperative day #4, having undergone evacuation of subdural hematoma with bilateral frontal and parietal ana holes. Today, the patient is sitting up in bed and she appears to be very alert. She has some confusion, but otherwise intermittently follows commands. She denies headache or nausea. According to the nursing team, she is following commands, has briskly today as she was yesterday. Her sodium is at 141 and her CBC is improving. She has a low white blood cell count and her hemoglobin is improving. She is moving all of her extremities equally. She remains on Keppra. She has had the UTI, which may be leading to some of her confusion and she is on Macrobid for this. We will discontinue her Ancef as she no longer has her drains in place. She will likely be ready to transition back to inpatient rehab in the next few days. We will monitor her neurologic status. Again, in my exam, she appears to be much improved compared to immediately postoperatively, so her neurologic exam may wax and wane. Please call with any changes in the patient's neurologic status. Otherwise, she is definitely improving and moving in the right direction. Job ID: [id number]
--- NOTE | 2019-03-17 13:19 | OP ---
DATE OF PROCEDURE: 03/14/2019 Note that a modifier should be added to the surgery as this was an unplanned return to the operating room and another modifier because this was bilateral evacuation of reaccumulation of subdural hematoma. DIRECTOR OF FIELD COORDINATION: Marcos Sanz PA-C PREPROCEDURE DIAGNOSIS: Persistent subdural hematoma with midline shift, mass effect, and neurologic decline. POSTPROCEDURE DIAGNOSIS: Persistent subdural hematoma with midline shift, mass effect, and neurologic decline. PROCEDURE PERFORMED: 1. Bilateral reopening of frontal ana hole evacuation for subdural hematoma with placement of new parietal ana holes bilaterally with placement of subdural drains bilaterally. DESCRIPTION OF PROCEDURE: After informed consent was obtained from the patient and her family, she was brought to the OR. Proper patient, pause, and identification were carried out. She was placed under excellent general endotracheal anesthesia and positioned supine on the OR table. All appropriate points were padded. We identified the two prior frontal wounds and eugene out a new parietal wounds bilaterally after hair was clipped. These regions were sterilely cleansed, prepared, and draped. The shellie were then removed allowing for reopening of the frontal wounds and new parietal wounds were made. Retractors were placed. [place] holes were fashioned over the parietal region. I then reentered the subdural compartment and evacuated subdural hematoma and hygroma that had reaccumulated. This came out under moderate pressure. We were able to irrigate all 4 wounds and see the brain underneath and once the irrigation was clear and I was satisfied with our evacuation, subdural drains were placed and secured to the scalp. The wounds were again copiously irrigated and closed in anatomic layers. The patient emerged from anesthesia. Job ID: [id number]
--- NOTE | 2019-03-17 18:12 | PDOC.PN ---
- Subjective Encounter Start Date: 03/17/19 Encounter Start Time: 14:00 Patient seen and examined for med mngt. Confusion gradually improving. No fever/ chills/SOB/Nausea. No new complaints. No overnight events - Objective Resuscitation Status - Order Detail: 03/16/19 16:48 Resuscitation Status Routine Resuscitation Status: DNAR: NO Resuscitation Discussed with: OOH-DNR in chart - RN verified with family MAR Reviewed: Yes Vital Signs & Weight: Vital Signs (12 hours) Temp Pulse Pulse BP BP Pulse Ox Pulse Ox 03/17/19 12:00 97.8 F 03/17/19 09:29 79 143/73 H 97 03/17/19 08:53 67 143/73 H 03/17/19 08:00 99 Weight Weight 139 lb 15.896 oz Most Recent Monitor Data Heart Rate from ECG 69 NIBP 136/59 NIBP BP-Mean 84 Respiration from ECG 32 SpO2 99 I&O: 03/16/19 03/17/19 03/18/19 06:59 06:59 06:59 Intake Total 1985 2301 Output Total 150 9 2 Balance 1835 2292 -2 Result Diagrams: 03/17/19 08:42 03/17/19 08:42 Phys Exam - Physical Examination Constitutional: NAD Respiratory: no wheezing, no rhonchi Cardiovascular: RRR, no rub Gastrointestinal: soft, non-tender, positive bowel sounds Musculoskeletal: no edema Neurological: moves all 4 limbs Dx/Plan - Plan plan discussed w/ family, PT/OT, DVT proph w/SCDs IMPRESSION: Gen weakness with encephalopathy - improving HTN Hypokalemia Hypoglycemia - no new episodes Enterococcus UTI - on Macrobid CAD - declined CABG DM2 - diet controlled Recurrent falls Chronic headaches 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 Resume Prednisone when ok with Neurosurgery Review of Systems - Review of Systems Respiratory: negative: Cough, Dry, Shortness of Breath, Hemoptysis, SOB with Excertion, Pleuritic Pain, Sputum, Wheezing Cardiovascular: negative: chest pain, palpitations, orthopnea, paroxysmal nocturnal dyspnea, edema, light headedness, other Gastrointestinal: Constipation. negative: Nausea, Vomiting, Abdominal Pain, Diarrhea, Melena, Hematochezia, Other - Medications/Allergies Allergies/Adverse Reactions: Allergies Allergy/AdvReac Type Severity Reaction Status Date / Time hydrocodone Allergy Verified 02/05/19 18:00 lisinopril Allergy Verified 02/05/19 18:00 losartan Allergy Verified 02/05/19 18:00 Medications: Current Medications Acetaminophen (Tylenol) 650 mg PO Q4H PRN PRN Reason: Headache/Fever/Mild Pain (1-3) Last Admin: 03/16/19 11:21 Dose: 650 mg Amlodipine Besylate (Norvasc) 2.5 mg PO BID [facility] Last Admin: 03/17/19 08:53 Dose: 2.5 mg Atorvastatin Calcium (Lipitor) 40 mg PO QPM [facility] Last Admin: 03/16/19 19:57 Dose: 40 mg Bisacodyl (Dulcolax) 10 mg PO DAILYPRN PRN PRN Reason: Constipation Bisacodyl (Dulcolax) 10 mg [place] DAILY [facility] Bisoprolol Fumarate (Zebeta) 5 mg PO DAILY [facility] Last Admin: 03/17/19 08:54 Dose: 5 mg Escitalopram Oxalate (Lexapro) 5 mg PO DAILY [facility] Last Admin: 03/17/19 08:53 Dose: 5 mg Hydralazine HCl (Apresoline) 10 mg SLOW IVP Q15MIN PRN PRN Reason: SBP greater than 150 Last Admin: 03/15/19 22:23 Dose: 10 mg Levetiracetam 500 mg/ Device 100 mls @ 200 mls/hr IVPB BID [facility] Last Admin: 03/17/19 08:54 Dose: 100 mls Potassium Chloride 20 meq/ (Device) 100 mls @ 50 mls/hr IVPB Q2H [facility] Stop: 03/17/19 20:59 Nitrofurantoin Macrocrystals (Macrobid) 100 mg PO BID [facility] Last Admin: 03/17/19 08:53 Dose: 100 mg Nystatin (Mycostatin Powder) 0 gm TOP TID [facility] Last Admin: 03/17/19 14:07 Dose: 1 applic Pantoprazole Sodium (Protonix) 40 mg PO DAILY [facility] Polyethylene Glycol (Miralax) 17 gm PO HS [facility] Potassium Chloride (Klor-Con) 20 meq PO BID[facility] Promethazine HCl (Phenergan) 12.5 mg IVPB Q6H PRN PRN Reason: Nausea/Vomiting Scopolamine (Transderm Scop) 1.5 mg TD Q3D [facility] Last Admin: 03/16/19 12:20 Dose: 1.5 mg Senna/Docusate Sodium (Senokot S) 2 tab PO BID [facility] Sodium Chloride (Flush - Normal Saline) 10 ml IVF PRN PRN PRN Reason: Saline Flush
[2019-03-17] MEDS: Potassium Chloride 20 MEQ in Premix Bag 1 BAG IVPB SCH (18:42)
[2019-03-17] MEDS: Senokot S 8.6-50 MG TAB PO SCH (20:57)
[2019-03-17] MEDS: Atorvastatin Calcium 40 MG TAB PO SCH (20:57)
[2019-03-17] MEDS: Polyethylene Glycol 3350 17 GM Packet PO SCH (20:57)
[2019-03-18] MEDS: Potassium Chloride 20 MEQ in Premix Bag 1 BAG IVPB SCH (00:26)
[2019-03-18 05:45] LABS: Anion Gap 11 mmol/L (10-20); BUN (Urea Nitrogen) 5 mg/dL (9.8-20.1); Calc. Creatinine Clearance 76 mL/min (70-130); Calcium 8.6 mg/dL (7.8-10.44); Carbon Dioxide 24 mmol/L (23-31); Chloride 109 mmol/L (98-107); Estimated GFR-MDRD Greater than 90; Glucose 99 mg/dL (83-110); Magnesium 1.6 mg/dL (1.6-2.6); Potassium 3.6 mmol/L (3.5-5.1); Sodium 140 mmol/L (136-145)
--- NOTE | 2019-03-18 09:06 | PRG ---
DATE OF SERVICE: 03/18/2019 This is Marcos Sanz PA-C dictating a report for Antione Matthew MD. Ms. Hernandez is postoperative day #5 having undergone ana hole placement for evacuation of subdural hematoma. The patient has been transferred from the CCU to the floor and is doing well. She is sitting in bed, eating. She is extremely hard of hearing, which limits the exam; however, she notes no headache and no nausea or vomiting. She is much more alert today, although she is still slightly confused and does not formally follow commands. She moves all extremities equally. We will get an ultrasound of the bilateral lower extremities to ensure that she does not have a DVT, but she should likely be ready for transfer back to [facility] in the next day or two. Her sodium is stable at 140, and overall, she appears to be doing well. Please call with any changes in the patient's neurologic status. Job ID: [id number]
[2019-03-18] MEDS: Amlodipine 5 MG TAB PO SCH ×2 (09:49→20:14)
[2019-03-18] MEDS: Pantoprazole 40 MG GRANULES PACKET PO SCH (09:50)
[2019-03-18] MEDS: Senokot S 8.6-50 MG TAB PO SCH ×2 (09:50→20:14)
[2019-03-18] MEDS: Escitalopram Oxalate 10 mg Tablet PO SCH (09:51)
[2019-03-18] MEDS: Nitrofurantoin Monohyd/M-Cryst 100 MG CAP PO SCH ×2 (09:52→20:16)
[2019-03-18] MEDS: Bisacodyl 10 MG SUPP PR SCH (09:52)
[2019-03-18] MEDS: Bisoprolol Fumarate 5 MG TAB PO SCH (10:02)
[2019-03-18] MEDS: Nystatin Powder 15 GM BOT TOP SCH ×3 (10:02→20:17)
[2019-03-18] MEDS ORDERED: Magnesium 2 GM/50 ML 2 GM in Premix Bag 1 BAG IVPB SCH (10:15)
--- NOTE | 2019-03-18 11:04 | ULT ---
BILATERAL LOWER EXTREMITY VENOUS DOPPLER ULTRASOUND: Date: 03/18/19 HISTORY: Impaired mobility, recent surgery. Bilateral lower extremity edema. TECHNIQUE: Duarte scale ultrasound with color flow and spectral Doppler imaging of the deep venous systems of the lower extremities was performed bilaterally. FINDINGS: There is good flow, compression, and augmentation noted in the deep veins of the lower extremities bi laterally, including the common femoral, femoral, deep femoral, popliteal, posterior tibial, and grea ter saphenous veins. IMPRESSION: No evidence of deep venous thrombosis in either lower extremity. POS: OFF
[2019-03-18] MEDS: Atorvastatin Calcium 40 MG TAB PO SCH (20:13)
--- NOTE | 2019-03-18 20:19 | PDOC.PN ---
- Subjective Encounter Start Date: 03/18/19 Encounter Start Time: 16:30 Patient seen and examined for med mngt. More awake. Intermittent confusion. No new complaints. No overnight events - Objective Resuscitation Status - Order Detail: 03/16/19 16:48 Resuscitation Status Routine Resuscitation Status: DNAR: NO Resuscitation Discussed with: OOH-DNR in chart - RN verified with family MAR Reviewed: Yes Vital Signs & Weight: Vital Signs (12 hours) Temp Pulse Resp BP Pulse Ox 03/18/19 20:14 66 03/18/19 20:10 98.8 F 66 18 159/75 H 95 03/18/19 15:17 97.8 F 63 14 148/78 H 93 L 03/18/19 10:52 98.1 F 71 14 150/72 H 94 L 03/18/19 09:50 92 L 03/18/19 09:49 68 Weight Weight 139 lb 15.896 oz Most Recent Monitor Data Heart Rate from ECG 69 NIBP 136/59 NIBP BP-Mean 84 Respiration from ECG 32 SpO2 99 I&O: 03/17/19 03/18/19 03/19/19 06:59 06:59 06:59 Intake Total 2301 300 Output Total 9 2 Balance 2292 298 Result Diagrams: 03/17/19 08:42 03/18/19 04:28 Radiology Reviewed by me: No (Doppler LE - no DVT) Phys Exam - Physical Examination Constitutional: NAD Respiratory: no wheezing, no rhonchi Cardiovascular: RRR, no rub Gastrointestinal: soft, non-tender, positive bowel sounds Musculoskeletal: no edema Neurological: moves all 4 limbs Dx/Plan - Plan DVT proph w/SCDs IMPRESSION: Gen weakness with encephalopathy - improving HTN Hypokalemia/Hypomagnesemia Hypoglycemia - no new episodes Enterococcus UTI - on Macrobid CAD - declined CABG in the past DM2 - diet controlled Recurrent falls Chronic headaches 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 Recheck labs in 2-3 days Review of Systems - Review of Systems Respiratory: negative: Cough, Dry, Shortness of Breath, Hemoptysis, SOB with Excertion, Pleuritic Pain, Sputum, Wheezing Cardiovascular: negative: chest pain, palpitations, orthopnea, paroxysmal nocturnal dyspnea, edema, light headedness, other - Medications/Allergies Allergies/Adverse Reactions: Allergies Allergy/AdvReac Type Severity Reaction Status Date / Time hydrocodone Allergy Verified 02/05/19 18:00 lisinopril Allergy Verified 02/05/19 18:00 losartan Allergy Verified 02/05/19 18:00 Medications: Current Medications Acetaminophen (Tylenol) 650 mg PO Q4H PRN PRN Reason: Headache/Fever/Mild Pain (1-3) Last Admin: 03/16/19 11:21 Dose: 650 mg Amlodipine Besylate (Norvasc) 2.5 mg PO BID [facility] Last Admin: 03/18/19 20:14 Dose: 2.5 mg Atorvastatin Calcium (Lipitor) 40 mg PO QPM [facility] Last Admin: 03/18/19 20:13 Dose: 40 mg Bisacodyl (Dulcolax) 10 mg PO DAILYPRN PRN PRN Reason: Constipation Bisacodyl (Dulcolax) 10 mg [place] DAILY [facility] Last Admin: 03/18/19 09:52 Dose: 10 mg Bisoprolol Fumarate (Zebeta) 5 mg PO DAILY [facility] Last Admin: 03/18/19 10:02 Dose: 5 mg Escitalopram Oxalate (Lexapro) 5 mg PO DAILY [facility] Last Admin: 03/18/19 09:51 Dose: 5 mg Hydralazine HCl (Apresoline) 10 mg SLOW IVP Q15MIN PRN PRN Reason: SBP greater than 150 Last Admin: 03/15/19 22:23 Dose: 10 mg Levetiracetam 500 mg/ Device 100 mls @ 200 mls/hr IVPB BID [facility] Last Admin: 03/18/19 20:17 Dose: 100 mls Nitrofurantoin Macrocrystals (Macrobid) 100 mg PO BID [facility] Last Admin: 03/18/19 20:16 Dose: 100 mg Nystatin (Mycostatin Powder) 0 gm TOP TID [facility] Last Admin: 03/18/19 20:17 Dose: 1 applic Pantoprazole Sodium (Protonix) 40 mg PO DAILY [facility] Last Admin: 03/18/19 09:50 Dose: 40 mg Polyethylene Glycol (Miralax) 17 gm PO HS [facility] Last Admin: 06/24/19 20:57 Dose: 17 gm Potassium Chloride (Klor-Con) 20 meq PO BID[facility] Last Admin: 03/18/19 16:05 Dose: 20 meq Promethazine HCl (Phenergan) 12.5 mg IVPB Q6H PRN PRN Reason: Nausea/Vomiting Scopolamine (Transderm Scop) 1.5 mg TD Q3D [facility] Last Admin: 03/16/19 12:20 Dose: 1.5 mg Senna/Docusate Sodium (Senokot S) 2 tab PO BID [facility] Last Admin: 03/18/19 20:14 Dose: 2 tab Sodium Chloride (Flush - Normal Saline) 10 ml IVF PRN PRN PRN Reason: Saline Flush
[2019-03-18] MEDS: Polyethylene Glycol 3350 17 GM Packet PO SCH (20:21)
[2019-03-19 07:50] LABS: #Eosinphils 0.1 thou/uL (0.0-0.7); #Lymphocytes 0.7 thou/uL (1.20-3.40); #Monocytes 0.4 thou/uL (0.11-0.59); #Neutrophils 2.3 thou/uL (1.40-6.50); %Basophils 0.6 % (0.0-1.0); %Eosinophils 2.4 % (0.0-10.0); %Lymphocytes 20.5 % (21.0-51.0); %Monocytes 10.7 % (0.0-10.0); %Neutrophils 65.8 % (42.0-75.0); Hemoglobin 11.1 g/dL (12.0-16.0); Mean Corpuscular HGB CONC 33.1 g/dL (32.0-36.0); Mean Corpuscular Hemoglobin 30.1 pg (27.0-31.0); Mean Corpuscular Volume 90.8 fL (78.0-98.0); Mean Platelet Volume 8.3 fL (7.4-10.4); Platelet Count 165 thou/uL (130-400); RBC Distribution Width 15.9 % (11.5-14.5); Red Blood Cell (RBC) Count 3.69 mill/uL (4.20-5.40); White Blood Cell (WBC) Count 3.5 thou/uL (4.8-10.8)
[2019-03-19 08:01] LABS: Anion Gap 11 mmol/L (10-20); BUN (Urea Nitrogen) Less than 4 mg/dL (9.8-20.1); Calc. Creatinine Clearance 71 mL/min (70-130); Calcium 8.6 mg/dL (7.8-10.44); Carbon Dioxide 26 mmol/L (23-31); Chloride 107 mmol/L (98-107); Estimated GFR-MDRD Greater than 90; Glucose 105 mg/dL (83-110); Potassium 3.5 mmol/L (3.5-5.1); Sodium 140 mmol/L (136-145)
[2019-03-19] MEDS: Senokot S 8.6-50 MG TAB PO SCH ×2 (10:16→21:21)
[2019-03-19] MEDS: Escitalopram Oxalate 10 mg Tablet PO SCH (10:17)
[2019-03-19] MEDS: Pantoprazole 40 MG GRANULES PACKET PO SCH (10:17)
[2019-03-19] MEDS: Nitrofurantoin Monohyd/M-Cryst 100 MG CAP PO SCH (10:17)
[2019-03-19] MEDS: Bisoprolol Fumarate 5 MG TAB PO SCH (10:18)
[2019-03-19] MEDS: Amlodipine 5 MG TAB PO SCH ×2 (10:18→21:20)
--- NOTE | 2019-03-19 11:35 | CT ---
CT HEAD WITHOUT IV CONTRAST COMPARISON: 03/14/2019 HISTORY: Decreased levels of consciousness. TECHNIQUE: Axial CT imaging at 5 mm intervals from vertex through skull base without contrast FINDINGS: There has been interval removal of the bilateral subdural drainage catheters with ana holes again se en in the calvarium in the bifrontal regions. Pneumocephalus is again present. The bilateral subdural collections are also again noted. The right subdural collection is larger in size compared t o the prior exam with largest transverse dimension measuring approximately 10 mm. No significant subdural collection was seen on the right on the prior exam. Left subdural collection is again presen t, and although there does appear to be redistribution of the subdural collection, the greatest transverse dimension measures 15 mm and on the prior exam measured 12 mm. There is mild mass effect on the cerebral hemispheres bilaterally greatest involving the left fronta l lobe secondary to the subdural collections. There is no midline shift. Mild chronic small vessel ischemic changes and cerebral volume loss is again present. No acute cortic al infarction or hemorrhage is identified. The ventricular system is normal in size, shape, and position. Again noted is opacification of the majority of the left sphenoid sinus and a posterior left ethmoida l air cell. Mastoid air cells are clear. IMPRESSION: 1. Interval increase in size of the bilateral subdural collections. Pneumocephalus is again present a nd similar to prior exam. 2. Interval removal of the bilateral subdural drainage catheters. 3. Mass effect on the frontal lobes bilaterally due to the subdural collections.
[2019-03-19] MEDS: Nystatin Powder 15 GM BOT TOP SCH ×3 (12:55→21:21)
[2019-03-19] MEDS: Scopolamine 1.5 mg/72 hour Patch TD SCH (12:55)
--- NOTE | 2019-03-19 13:18 | PRG ---
DATE OF SERVICE: 03/19/2019 This is Marcos Sanz PA-C dictating a report for Antione Matthew MD. This is a postoperative recheck. Ms. Hernandez is now postoperative day number seven, having undergone bilateral frontal and parietal ana hole placement for evacuation of subdural hematoma. The patient is comfortably sleeping on my exam. However, throughout the course in the morning, she had some decreased alertness and some episodes of staring with minimal responsiveness. This prompted a repeat head CT to be done and Dr. Matthew and I both reviewed this together. It shows significant improvement in her bilateral subdural hematoma collection, although there is still some present. There is also a slight amount of pneumocephalus, but the brain is not compressed in any way in regard to tension either from the subdural collection or the pneumocephalus. In fact, when speaking with the nursing staff, now the patient is more awake and was able to sit up in a chair. I have updated the patient's daughter via phone call that the patient's CT has shown improvement compared to her presenting CT as well as her postoperative CT. Right now she is ready for rehab and I have let her know that likely her brain needs time to heal and her neurologic exam will fluctuate from time to time until she continues to heal. She does not need any type of neurosurgery or any type of repeat surgery for this subdural collection. It should likely improve with time. Again, we will continue to monitor the patient's status, but she is safe for rehab at anytime. We will plan for dismissal tomorrow. Job ID: [id number]
[2019-03-19] MEDS ORDERED: Ondansetron PF 4 MG/2 ML Vial IVP PRN (15:19)
--- NOTE | 2019-03-19 15:22 | PDOC.PN ---
- Subjective Encounter Start Date: 03/19/19 (f/u htn) Encounter Start Time: 15:20 Subjective: Pt more somnolent today - noticed by daughter. Easily falls asleep - Objective Resuscitation Status - Order Detail: 03/16/19 16:48 Resuscitation Status Routine Resuscitation Status: DNAR: NO Resuscitation Discussed with: OOH-DNR in chart - RN verified with family Vital Signs & Weight: Vital Signs (12 hours) Temp Pulse Resp BP Pulse Ox 03/19/19 11:05 97.6 F 68 20 153/74 H 95 03/19/19 10:18 67 03/19/19 07:33 98.3 F 67 20 132/63 94 L 03/19/19 04:17 98.2 F 71 18 154/72 H 94 L Weight Weight 139 lb 15.896 oz Most Recent Monitor Data Heart Rate from ECG 69 NIBP 136/59 NIBP BP-Mean 84 Respiration from ECG 32 SpO2 99 I&O: 03/18/19 03/19/19 03/20/19 06:59 06:59 06:59 Intake Total 300 340 Output Total 2 Balance 298 340 Result Diagrams: 03/19/19 07:35 03/19/19 07:35 Phys Exam - Physical Examination Constitutional: NAD Respiratory: no wheezing, no rales, no rhonchi, clear to auscultation bilateral Cardiovascular: RRR, no significant murmur Gastrointestinal: soft, non-tender, no distention, positive bowel sounds Musculoskeletal: no edema Deviation from normal: wakes briefly, easily falls back asleep Dx/Plan (1) Subdural hematoma Code(s): S06.5X9A - TRAUM SUBDR HEM W LOC OF UNSP DURATION, INIT Status: Acute (2) Hypertension Code(s): I10 - ESSENTIAL (PRIMARY) HYPERTENSION Status: Chronic Qualifiers: Hypertension type: essential hypertension Qualified Code(s): I10 - Essential (primary) hypertension (3) Psoriasis Code(s): L40.9 - PSORIASIS, UNSPECIFIED Status: Chronic (4) UTI (urinary tract infection) Status: Acute Qualifiers: Urinary tract infection type: acute cystitis (5) Coronary artery disease Code(s): I25.10 - ATHSCL HEART DISEASE OF [place] CORONARY ARTERY W/O ANG PCTRS Status: Chronic (6) Depression Code(s): F32.9 - MAJOR DEPRESSIVE DISORDER, SINGLE EPISODE, UNSPECIFIED Status : Chronic - Plan * Reviewed home meds and pt has been on prednisone 5 mg daily for psoriasis and psoriatic arthritis - was not ordered here. WIll d/w NS if this can be restarted as it looks like a flare on pt's right palm is starting * Ok to resume - start in AM * * Enterococcus UTI - on macrobid - this may be contributing tothe change in mental status. Will d/c this and start amoxicilllin for 5 days * d/c scopolamine * d/c phenergan, start prn zofran * reviewed other home meds and continue * leukopenia and anemia - stable - recommend periodic monitoring at rehab. May be secondary to antibiotics. * * diet controlled DM - no need for monitoring here, fasting blood sugars are normal. Daughter requests no monitoring at rehab. * * dvt prophy - scd's * gi prophy - not indicated, on home ppi * code status DNAR * * anticipate transfer to rehab tomorrow * pt remains at high risk in current condition * reviewed plan of care with patient's daughter, who demonstrates understanding and agrees. nO questions or further needs at end of eval.
[2019-03-19] MEDS: Bisacodyl 10 MG SUPP PR SCH (19:34)
[2019-03-19] MEDS: Polyethylene Glycol 3350 17 GM Packet PO SCH (21:20)
[2019-03-19] MEDS: Atorvastatin Calcium 40 MG TAB PO SCH (21:20)
--- NOTE | 2019-03-20 08:53 | PRG ---
DATE OF SERVICE: 03/20/2019 This is Marcos Sanz PA-C dictating a report for Antione Matthew MD. This is a postoperative recheck. Ms. Hernandez now is 7 days postop having undergone bilateral frontal and parietal ana hole placement. She is resting comfortably in bed, but awakens easily. She is extremely hard of hearing, which limits her exam, but she is able to mimic wiggling the fingers bilaterally. She states she does not have a headache. Repeat head CT was done yesterday that had showed stability and slight continued bilateral subdural hematoma. However, these are significantly improved compared to her preoperative CT and significant improvement in her pneumocephalus. The patient is ready for discharge to inpatient rehab at anytime. Her family was updated yesterday. Please call with any changes in the patient's neurologic status. Otherwise, she is ready for discharge. Job ID: [id number]
[2019-03-20] MEDS: Bisacodyl 10 MG SUPP PR SCH (09:05)
[2019-03-20] MEDS: predniSONE 5 MG TAB PO SCH (09:08)
[2019-03-20] MEDS: Pantoprazole 40 MG GRANULES PACKET PO SCH (09:08)
[2019-03-20] MEDS: Amlodipine 5 MG TAB PO SCH ×2 (09:09→20:41)
[2019-03-20] MEDS: Senokot S 8.6-50 MG TAB PO SCH ×2 (09:09→20:40)
[2019-03-20] MEDS: Potassium Chloride 20 MEQ TAB PO SCH ×2 (09:09→16:34)
[2019-03-20] MEDS: Bisoprolol Fumarate 5 MG TAB PO SCH (09:10)
[2019-03-20] MEDS: Nystatin Powder 15 GM BOT TOP SCH ×3 (09:11→20:47)
[2019-03-20] MEDS: Escitalopram Oxalate 10 mg Tablet PO SCH (09:15)
--- NOTE | 2019-03-20 10:26 | PDOC.PN ---
- Subjective Encounter Start Date: 03/20/19 (f/u UTI) Encounter Start Time: 10:24 Subjective: No overnight events reported by RN. Pt sitting up in bed, awake. - Objective Resuscitation Status - Order Detail: 03/16/19 16:48 Resuscitation Status Routine Resuscitation Status: DNAR: NO Resuscitation Discussed with: OOH-DNR in chart - RN verified with family Vital Signs & Weight: Vital Signs (12 hours) Temp Pulse Resp BP Pulse Ox 03/20/19 09:09 73 03/20/19 07:44 73 12 152/88 H 92 L 03/20/19 03:26 99 F 73 14 132/71 92 L 03/20/19 00:37 98.5 F 73 14 145/71 H 93 L Weight Weight 139 lb 15.896 oz Most Recent Monitor Data Heart Rate from ECG 69 NIBP 136/59 NIBP BP-Mean 84 Respiration from ECG 32 SpO2 99 I&O: 03/19/19 03/20/19 03/21/19 06:59 06:59 06:59 Intake Total 340 100 Balance 340 100 Result Diagrams: 03/19/19 07:35 03/19/19 07:35 Phys Exam - Physical Examination Constitutional: NAD Respiratory: no wheezing, no rales, no rhonchi Cardiovascular: RRR, no significant murmur Gastrointestinal: soft, non-tender, no distention, positive bowel sounds Musculoskeletal: no edema Neurological: non-focal, moves all 4 limbs Dx/Plan (1) Subdural hematoma Code(s): S06.5X9A - TRAUM SUBDR HEM W LOC OF UNSP DURATION, INIT Status: Acute (2) Hypertension Code(s): I10 - ESSENTIAL (PRIMARY) HYPERTENSION Status: Chronic Qualifiers: Hypertension type: essential hypertension Qualified Code(s): I10 - Essential (primary) hypertension (3) Psoriasis Code(s): L40.9 - PSORIASIS, UNSPECIFIED Status: Chronic (4) UTI (urinary tract infection) Status: Acute Qualifiers: Urinary tract infection type: acute cystitis (5) Coronary artery disease Code(s): I25.10 - ATHSCL HEART DISEASE OF [place] CORONARY ARTERY W/O ANG PCTRS Status: Chronic (6) Depression Code(s): F32.9 - MAJOR DEPRESSIVE DISORDER, SINGLE EPISODE, UNSPECIFIED Status : Chronic - Plan * Mental status improved today * * Home prednisone restarted today for psoriatic arthritis * * Enterococcus UTI - changed to amoxicillin yesterday - today is day 2 of planned 5 day course * reviewed other home meds and continue * leukopenia and anemia - stable - recommend periodic monitoring at rehab. May be secondary to antibiotics. * * diet controlled DM - no need for monitoring here, fasting blood sugars are normal. Daughter requests no monitoring at rehab. * * dvt prophy - scd's * gi prophy - not indicated, on home ppi * code status DNAR * * ready for discharge to rehab - discussed this with telephonic nurse case manager * * reviewed plan of care with RN (pt's daughter is not present currently).
[2019-03-20 15:15] VITALS: BMI 24.0
[2019-03-20] MEDS: Polyethylene Glycol 3350 17 GM Packet PO SCH (20:40)
[2019-03-20] MEDS: Atorvastatin Calcium 40 MG TAB PO SCH (20:41)
[2019-03-21] MEDS: Escitalopram Oxalate 10 mg Tablet PO SCH (09:36)
[2019-03-21] MEDS: predniSONE 5 MG TAB PO SCH (09:36)
[2019-03-21] MEDS: Pantoprazole 40 MG GRANULES PACKET PO SCH (09:36)
[2019-03-21] MEDS: Bisoprolol Fumarate 5 MG TAB PO SCH (09:36)
[2019-03-21] MEDS: Potassium Chloride 20 MEQ TAB PO SCH (09:37)
[2019-03-21] MEDS: Nystatin Powder 15 GM BOT TOP SCH ×2 (09:37→15:00)
[2019-03-21] MEDS: Amlodipine 5 MG TAB PO SCH (09:37)
[2019-03-21] MEDS: Senokot S 8.6-50 MG TAB PO SCH (09:37)
[2019-03-21] MEDS: Bisacodyl 10 MG SUPP PR SCH (09:38)
--- NOTE | 2019-03-21 09:49 | PRG ---
DATE OF SERVICE: 03/21/2019 This is Marcos Sanz PA-C dictating a report for Antione Matthew MD. Ms. Hernandez is postoperative day #9, having undergone bilateral frontal and parietal ana hole placement for evacuation of subdural hematoma. The patient continues to be stable neurologically. She is currently in bed and awake. She is extremely hard of hearing, which limits the exam. She denies headache or nausea. She moves all extremities spontaneously. She is ready for discharge to inpatient rehab at anytime. Paperwork has been completed. Please call with any changes in the patient's neurologic status. Job ID: [id number]
[2019-03-21 15:47] VITALS: BP 122/69; TEMP 97.8
--- NOTE | 2019-03-21 17:54 | PDOC.EVN ---
Event Note - Event Note Event Note: Pt transferred to rehab center prior to my arrival today. Reviewed meds and amoxicillin not included. Left message on Dr. Pfeiffer's cell phone, as unable to order meds at the rehab center. Pt has received 4 of planned 10 doses. Amoxicillin 500 mg BID. Message sent to Marcos Sanz/[facility] to see if she has privileges there to order it. Called Yulia/Nursing Occupational Therapy Specialist (cell number [phone]) at the Rehab center with the information - amoxicillin 500 mg bid for 6 more doses. She will contact Dr. Pfeiffer for the order. No questions at end of call. 23:15 - contacted by Yulia earlier this evening who states the order has been completed through Dr Pfeiffer and the patient antibiotic will continue there.
--- NOTE | 2019-03-21 22:34 | CON ---
SUMMARY OF CARE PROVIDED BY HOSPITALIST SERVICE REQUESTER: Neurosurgical team. HISTORY OF PRESENT ILLNESS: Ms. Hernandez is an 84-year-old female, who presented to the [facility] for significant nausea, vomiting, and dizziness in the context of subdural hematoma, which had reaccumulated. The patient was having delirium, confusion that was worsening, and was admitted by the neurosurgical team. Hospitalists were consulted for medication management for the patient with the first encounter on March 13. The following issues were identified and treated. 1. Enterococcus urinary tract infection. Initially, the patient was on IV vancomycin, awaiting sensitivity. She was then transitioned over to the nitrofurantoin. On March 19, she was noted to have a change in mentation, being more somnolent. Because of this change in mental status, the nitrofurantoin was changed over to amoxicillin for patient to complete a 5-day course. 2. Coronary artery disease/Hypertension. The patient was continued on her home statin, bisoprolol, and amlodipine. 3. Diabetes mellitus, type 2. This is diet controlled. Her blood sugars were well controlled here. Fingerstick glucose was not necessary and not recommended over the rehab. This is in discussion with the patient's daughter with the goal of optimizing patient's quality of life and no significant value with close monitoring of her blood sugars. 4. Psoriatic arthritis and psoriasis. The patient was on prednisone at a low dose as an outpatient to help manage these flares. This was held initially and then restarted yesterday in discussion with her daughter due to the effects on quality of life with skin flares. This will be continued in the outpatient setting. 5. Depression. The patient was continued on her usual home medication of escitalopram at a low dose. 6. Diet recommended is heart healthy. 7. Activity with rehab is for PT, OT, and Speech. 8. Please see the Neurosurgery summary for the care provided from their perspective. The patient was discharged prior to my evaluation on the day of her discharge to the rehab facility. I reviewed her medication list and noted that the amoxicillin was not present. I contacted the rehab center and spoke with the charge nurse, Yulia , who contacted Dr. Pfeiffer so that this could be added, that was amoxicillin 500 mg b.i.d. to complete 6 more doses for a total of 5 days of treatment. The other medications for patient's discharge are, 1. Amlodipine 2.5 mg b.i.d. 2. Atorvastatin 40 mg at night. 3. Bisoprolol 5 mg daily. 4. Escitalopram 5 mg daily. 5. Protonix 40 mg daily. 6. Prednisone 5 mg daily. FOLLOWUP: Follow up with the neurosurgery team, Dr. Matthew, as directed after rehab. Job ID: [id number] MTDD
--- NOTE | 2019-03-22 06:41 | PQF ---
[employer] Crystal Reports [employer] NII Patrick JASON MD [id number] CLINICAL DOCUMENTATION CLARIFICATION FORM: POST DISCHARGE Addendum to original discharge summary date: ____ Late entry note date: __ DATE: 03/22/2019 ATTN: JOANN PANIAGUA MD Please exercise your independent, professional judgment in responding to the clarification form. Clinical indicators are provided on the bottom of this form for your review Please check appropriate box(s): [ x] Encephalopathy: Type: [ ] Acute [ x ] Subacute [ x] Chronic Etiology: [ ] Hypertensive [ ] Metabolic [ ] Toxic [ ] Hepatic with Coma [ ] Hepatic w/o Coma [ ] Hypoxic [ ] Septic [ ] Drug induced: [ ] Unspecified [ ] in the setting of underlying dementia [ ] Other (please specify) [x ] Transient Alteration of Awareness [ ] Other diagnosis [ ] Unable to determine In addition, please specify: Present on Admission (POA): [ x ] Yes [ ] No [ ] Unable to determine For continuity of documentation, please document condition throughout progress notes and discharge summary. Thank You. 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/12/19 by Umu Rodríguez Bilateral subdural hematoma - Documented in H&P on 03/12/19 by Umu Rodríguez++ RISK FACTORS Enteroccus UTI - Documented in Progress noteson 03/14/19 by Dayanna Hamilton MD HTN - Documented in Progress noteson 03/14/19 by Dayanna Hamilton MD Status post bilateral frontal ana hole placement - Documented in H&P on by Umu Rodríguez Hypokalemia/hypomagnesemia - Documented in Progress noteson 03/18/19 by Dayanna Hamilton MD [employer] Crystal Reports Winform ViewerHypoglycemia - Documented in Progress noteson 03/18/19 by Dayanna Hamilton MD Patient having Delirium confusion that was worseninig - Documented in Discharge summary on 03/21/19 by Matias Delgado MD TREATMENTS: Evacuation of subdural hematoma with placement of subdural drain - Operative report on 03/14/19 by Vipul Talbot MD Replace magnessium - Documented in Progress noteson 03/18/19 by Dayanna Hamilton MD Patient wason IV Vancomycin - Documented in Discharge summary on 03/21/19 by Matias Delgado MD (This form is maintained as a part of the permanent medical record) 2014 [employer] All Rights Reserved [email or web address] [not provided] MTDD
== END 2019-03-21 16:45 | DRG 26 ==
LOC: ERS 14:54 → CCU 21:35 → SURG B 03-17 15:14
PROVIDERS: ADMIT Surgery; ATTEND Surgery
PROC: 009400Z Drainage of Intracranial Subdural Space with Drainage Device, Open Approach (ICD-10-PCS; principal; 2019-03-14)
DX: I62.00 Nontraumatic subdural hemorrhage, unspecified (principal); N39.0 Urinary tract infection, site not specified; G96.0 Cerebrospinal fluid leak; G93.49 Other encephalopathy; I10 Essential (primary) hypertension; B95.2 Enterococcus as the cause of diseases classified elsewhere; Z66 Do not resuscitate; I25.10 Atherosclerotic heart disease of native coronary artery without angina pectoris; L40.50 Arthropathic psoriasis, unspecified; F32.9 Major depressive disorder, single episode, unspecified; E11.649 Type 2 diabetes mellitus with hypoglycemia without coma; G93.89 Other specified disorders of brain; D72.819 Decreased white blood cell count, unspecified; E87.6 Hypokalemia; E83.42 Hypomagnesemia; Z95.1 Presence of aortocoronary bypass graft; Z88.6 Allergy status to analgesic agent; Z88.8 Allergy status to other drugs, medicaments and biological substances
CPT/HCPCS: 36415; 36416; 70450; 71045; 80048; 80053; 80202; 81003; 81015; 83735; 85025; 85610; 85730; 87077; 87086; 87186; 93005; 93010; 93970; 96361; 96374; C9113; J0131; J0360; J0690; J1953; J2001; J2405; J2704; J3010; J3370; J3475; J3480; J3490; J7050; J7512

== ENCOUNTER 2019-03-31 14:09 | Outpatient (CLI) | payer MEDICARE ==
--- NOTE | 2019-03-31 14:38 | CT ---
Exam: Head CT without contrast HISTORY: Follow-up subarachnoid hemorrhage. COMPARISON: 03/24/2019 FINDINGS: Hemorrhage: Redemonstration of bilateral predominantly frontal extra-axial subdural collections. Righ t-sided subdural collection measures 1.8 cm (previously measuring 1 cm). Left-sided subdural collection measures 0.8 cm (previously measuring 1.5 cm). There is evidence of pneumocephalus which h as decreased since the previous exam Brain parenchyma: Cortical chavez-white matter differentiation is preserved. No mass effect or midline shift. Basilar cisterns are patent. Ventricular system: Ventricles and sulci are patent and symmetric. Calvarium: Stable borehole defects. Opacification of the sphenoid sinus. Sinuses and mastoid air cells: Adequate aeration. IMPRESSION: Interval decrease in size of subdural hematomas an interval decrease in the degree of pneumocephalus. Continued surveillance is recommended.
== END 2019-03-31 14:10 | disposition home or self-care (01) ==
LOC: TBSIIMAG 14:09
PROVIDERS: ATTEND Surgery
DX: S06.5X0A Traumatic subdural hemorrhage without loss of consciousness, initial encounter (principal)
CPT/HCPCS: 70450